=== PATIENT | female | born 1970 | race Caucasian/White ===

== ENCOUNTER 2016-09-21 12:50 | Emergency (ER) | payer OTHER ==
[2016-09-21 13:02] VITALS: BP 144/79; PULSE 93; RESP 16; TEMP 98.4
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
--- NOTE | 2016-09-21 14:34 | US ---
EXAMINATION TYPE: US venous doppler duplex LE RT DATE OF EXAM: 09/21/2016 2:24 PM COMPARISON: US on PACS right lower extremity March 01, 2016 CLINICAL HISTORY: Right leg pain and swelling. SIDE PERFORMED: Right VESSELS IMAGED: External Iliac Vein (EIV) Common Femoral Vein Deep Femoral Vein Greater Saphenous Vein * Femoral Vein Popliteal Vein Proximal Calf Veins (* superficial vessels) Right Leg: No evidence of DVT Satisfactory color flow, phasicity, and compressibility is noted in the above levels. TECHNOLOGIST IMPRESSION: No ultrasound evidence for acute DVT in the right lower extremity on curren t study. IMPRESSION:
== END 2016-09-21 15:16 | disposition home or self-care (01) ==
LOC: EC 12:50
DX: S76.811A Strain of other specified muscles, fascia and tendons at thigh level, right thigh, initial encounter (principal); X58.XXXA Exposure to other specified factors, initial encounter; E11.9 Type 2 diabetes mellitus without complications; I10 Essential (primary) hypertension; M79.7 Fibromyalgia; E07.9 Disorder of thyroid, unspecified; M19.90 Unspecified osteoarthritis, unspecified site; Z79.01 Long term (current) use of anticoagulants; Z79.84 Long term (current) use of oral hypoglycemic drugs; Z79.899 Other long term (current) drug therapy; Z88.5 Allergy status to narcotic agent; Z88.8 Allergy status to other drugs, medicaments and biological substances; Z86.718 Personal history of other venous thrombosis and embolism; Z86.711 Personal history of pulmonary embolism
CPT/HCPCS: 99283

== ENCOUNTER → 2017-02-01 | Outpatient (CLI) | payer OTHER ==
--- NOTE | 2017-02-01 11:28 | USB ---
Reason for exam: additional evaluation requested from abnormal screening. Indicated problem(s): palpable abnormality in both breasts. Physical Findings: Nurse did not find any significant physical abnormalities on exam. US Breast BILAT Right breast ultrasound includes all four quadrants, the retroareolar region and axilla. Finding demonstrate a 0.8 x 0.6 x 0.8mm oval, solid, hyperechoic, probable lipoma lesion at 3 o'clock. Left breast ultrasound includes all four quadrants, the retroareolar region and axilla. Finding demonstrates no cystic or solid lesion seen. These results were verbally communicated with the patient and result sheet given to the patient on 02/01/17. ASSESSMENT: Benign, BI-RAD 2 RECOMMENDATION: Routine screening mammogram of both breasts in 1 year.
== END | disposition home or self-care (01) ==
LOC: RADUSWWP 09:58
PROVIDERS: ATTEND Obstetrics & Gynecology
DX: N64.4 Mastodynia (principal); N63 Unspecified lump in breast; R92.8 Other abnormal and inconclusive findings on diagnostic imaging of breast

== ENCOUNTER → 2017-04-09 | Outpatient (CLI) | payer OTHER ==
--- NOTE | 2017-04-09 08:50 | US ---
EXAMINATION TYPE: US transvaginal DATE OF EXAM: 04/09/2017 COMPARISON: NONE CLINICAL HISTORY: N92.0 Menorrhagia. Irregular heavy cycles with clots TECHNIQUE: TV Date of LMP: 03/02/2017 EXAM MEASUREMENTS: Uterus: 11.5 x 6.0 x 5.9 cm Endometrial Stripe: 1.9 cm Right Ovary: 2.5 x 1.8 x 2.1 cm Left Ovary: not seen large body habitus 1. Uterus: Anteverted multiple nabothian cyst seen, unable to recreate possible fibroid seen previ ously 2. Endometrium: thickened 3. Right Ovary: 1.4cm follicle seen 4. Left Ovary: unable to view 5. Bilateral Adnexa: wnl 6. Posterior cul-de-sac: wnl IMPRESSION: 1. NABOTHIAN CYSTS. 2. THICKENED ENDOMETRIAL STRIPE.
== END | disposition home or self-care (01) ==
LOC: RADUSWWP 07:58
PROVIDERS: ATTEND Obstetrics & Gynecology
DX: N92.0 Excessive and frequent menstruation with regular cycle (principal)
CPT/HCPCS: 76830

== ENCOUNTER → 2017-05-21 | Outpatient (CLI) | payer OTHER ==
[2017-05-21 16:19] LABS: Basophils % (A) 1 %; CH 23.9; CHCM 31.4; Eosinophils # (A) 0.1 k/uL (0-0.7); Eosinophils % (A) 2 %; HCT 36.3 % (34.0-46.0); HDW 3.34; HGB 11.4 gm/dL (11.4-16.0); Hypochromasia Moderate; Luc # (Auto) 0.11; Luc % (Auto) 1; Lymphocytes # (A) 1.6 k/uL (1.0-4.8); Lymphocytes % (A) 20 %; MCH 24.1 pg (25.0-35.0); MCHC 31.5 g/dL (31.0-37.0); MCV 76.5 fL (80.0-100.0); Mean Platelet Volume 9.7; Microcytosis Slight; Monocytes # (A) 0.4 k/uL (0-1.0); Monocytes % (A) 5 %; Neutrophils # (A) 5.7 k/uL (1.3-7.7); Neutrophils % (A) 72 %; RBC 4.74 m/uL (3.80-5.40); RDW 15.4 % (11.5-15.5); WBC 7.9 k/uL (3.8-10.6); WBC (Perox) 8.09
== END | disposition home or self-care (01) ==
LOC: LABPAT 15:30
PROVIDERS: ATTEND Obstetrics & Gynecology
DX: Z01.812 Encounter for preprocedural laboratory examination (principal)
CPT/HCPCS: 85025

== ENCOUNTER 2017-05-28 06:45 | Day surgery (SDC) | payer OTHER ==
[2017-05-26 15:50] VITALS: BMI 56.5
[~2017-05-28 06:45] MED LIST: DEXAMETHASONE SOD PHOSPHATE 10 MG/ML 1 ML VIAL IV ONE; LACTATED RINGERS 1,000 ML IV SCH; MIDAZOLAM 2 MG/2 ML VIAL IV PRN; Pre Op ABX Message 1 EACH MISC MISCELLANE ONE; SCOPOLAMINE 1.5MG/72HR PATCH TRANSDERM ONE
[2017-05-28 07:19] LABS: Glucose,Whole Blood 284 mg/dL (75-99)
[2017-05-28] MEDS ORDERED: LIDOCAINE 1% 20 ML VIAL (10MG/ML) FOR IV START INTRADERMA ONE (07:23)
[2017-05-28] MEDS: ONDANSETRON 4 MG/2 ML VIAL IVP ONE ×2 (07:24→10:25)
[2017-05-28] MEDS ORDERED: HYDROmorphone (PF) 1 MG/ML ONE (07:52)
[2017-05-28] MEDS ORDERED: SUCCINYLCHOLINE CHLORIDE VIAL 200 MG/10 ML VIAL IV ONE (07:52)
[2017-05-28] MEDS ORDERED: PROPOFOL 10 MG/ML 20 ML VIAL IV ONE (07:52)
[2017-05-28] MEDS ORDERED: LIDOCAINE 1% INJ 10MG/ML (20 ML MDV) ONE (07:52)
[2017-05-28] MEDS ORDERED: MIDAZOLAM 2 MG/2 ML VIAL ONE (07:52)
[2017-05-28] MEDS ORDERED: fentaNYL (PF) 50 MCG/ML 2 ML AMP ONE (07:52)
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
--- NOTE | 2017-05-28 08:16 | P.OP ---
Date of Procedure: 05/28/17 Preoperative Diagnosis: Dysfunctional bleeding/menorrhagia Postoperative Diagnosis: Same Procedure(s) Performed: Dilation and curettage Anesthesia: VANITA Surgeon: Samuel Fitzpatrick Estimated Blood Loss (ml): 10 Pathology: other (Uterine curettings) Condition: stable Disposition: same day Operative Findings: Large quantity of tissue Description of Procedure: Angie was taken to the operating suite where a general anesthetic was found be adequate. She was prepped and draped in normal sterile fashion placed in dorsal lithotomy position. Initially a weighted speculum was inserted into the vagina and anterior lip was identified and grasped with an Allis clamp and the cervix was dilated. Sharp curettings of endometrium were obtained and all tissues placed on Telfa and sent to pathology for evaluation. Once this was completed instruments were removed sponge, lap, needle counts were all correct 2. Patient was then taken to the recovery room in stable and satisfactory condition. Plan - Discharge Summary New Discharge Prescriptions: No Action Cyclobenzaprine [Flexeril] 5 mg PO DAILY PRN PRN Reason: Pain Levothyroxine Sodium [Synthroid] 200 mcg PO AC-BRKFST Cholecalciferol [Vitamin D3] 5,000 unit PO DAILY Melatonin 10 mg PO HS PRN PRN Reason: Insomnia Nitroglycerin Sl Tabs [Nitrostat] 0.4 mg SUBLINGUAL Q5M PRN #25 tab PRN Reason: Chest Pain clonazePAM [KlonoPIN] 1 mg PO BID PRN PRN Reason: Anxiety Apixaban [Eliquis] 2.5 mg PO BID sitaGLIPtin [Januvia] 100 mg PO DAILY HYDROcodone/APAP 10-325MG [[place] 10-325] 1 tab PO TID PRN PRN Reason: Pain glyBURIDE [Diabeta] 10 mg PO BID Omeprazole [PriLOSEC] 20 mg PO BID Metoprolol Succinate (ER) [Toprol Xl] 25 mg PO DAILY Calcium Carbonate [Tums] 1,000 mg PO HS PRN PRN Reason: Heartburn Acetaminophen Tab [Tylenol Tab] 325 mg PO Q6H PRN PRN Reason: Pain Discharge Medication List Cyclobenzaprine [Flexeril] 5 mg PO DAILY PRN 06/30/14 [History] Levothyroxine Sodium [Synthroid] 200 mcg PO AC-BRKFST 10/19/14 [History] Cholecalciferol [Vitamin D3] 5,000 unit PO DAILY 07/13/14 [History] Melatonin 10 mg PO HS PRN 07/14/14 [History] Nitroglycerin Sl Tabs [Nitrostat] 0.4 mg SUBLINGUAL Q5M PRN #25 tab 08/27/14 [Rx ] clonazePAM [KlonoPIN] 1 mg PO BID PRN 10/15/14 [History] Apixaban [Eliquis] 2.5 mg PO BID 05/17/15 [History] sitaGLIPtin [Januvia] 100 mg PO DAILY 01/14/16 [History] Acetaminophen Tab [Tylenol Tab] 325 mg PO Q6H PRN 05/26/17 [History] Calcium Carbonate [Tums] 1,000 mg PO HS PRN 05/26/17 [History] HYDROcodone/APAP 10-325MG [[place] 10-325] 1 tab PO TID PRN 05/26/17 [History] Metoprolol Succinate (ER) [Toprol Xl] 25 mg PO DAILY 05/26/17 [History] Omeprazole [PriLOSEC] 20 mg PO BID 05/26/17 [History] glyBURIDE [Diabeta] 10 mg PO BID 05/26/17 [History] Follow up Appointment(s)/Referral(s): Samuel Fitzpatrick DO [Doctor of Osteopathic Medicine] - 1 Week Activity/Diet/Wound Care/Special Instructions: No heavy lifting, limit stairs and driving, and pelvic rest. If any high temperatures, heavy bleeding, or severe pain call my office Discharge Disposition: HOME SELF-CARE
[2017-05-28] MEDS: fentaNYL (PF) 50 MCG/ML 2 ML AMP IV PRN ×2 (08:33→08:38)
[2017-05-28 09:24] VITALS: RESP 18
[2017-05-28 09:30] LABS: Glucose,Whole Blood 340 mg/dL (75-99)
[2017-05-28 09:32] VITALS: TEMP 98.8
[2017-05-28] MEDS ORDERED: INSULIN REGULAR 100 UNIT/ML VIAL IV ONE (09:43)
[2017-05-28 10:17] LABS: Glucose,Whole Blood 347 mg/dL (75-99)
[2017-05-28] MEDS ORDERED: INSULIN LISPRO (humaLOG) 300 UNIT/3 ML VIAL SQ ONE (10:20)
[2017-05-28 10:58] VITALS: BP 125/84; PULSE 82
[2017-05-28 11:03] LABS: Glucose,Whole Blood 365 mg/dL (75-99)
== END 2017-05-28 11:58 | disposition home or self-care (01) ==
LOC: OR 06:45
PROVIDERS: ATTEND Obstetrics & Gynecology
DX: N93.8 Other specified abnormal uterine and vaginal bleeding (principal); N92.0 Excessive and frequent menstruation with regular cycle; R93.8 Abnormal findings on diagnostic imaging of other specified body structures; I10 Essential (primary) hypertension; E11.9 Type 2 diabetes mellitus without complications; M79.7 Fibromyalgia; E66.01 Morbid (severe) obesity due to excess calories; K21.9 Gastro-esophageal reflux disease without esophagitis; M19.90 Unspecified osteoarthritis, unspecified site; Z79.84 Long term (current) use of oral hypoglycemic drugs; Z79.899 Other long term (current) drug therapy; Z88.1 Allergy status to other antibiotic agents; Z88.5 Allergy status to narcotic agent; Z88.8 Allergy status to other drugs, medicaments and biological substances; Z79.02 Long term (current) use of antithrombotics/antiplatelets; Z86.718 Personal history of other venous thrombosis and embolism; Z86.711 Personal history of pulmonary embolism; Z62.810 Personal history of physical and sexual abuse in childhood
CPT/HCPCS: 81025; 88305; 58120; J2250; J0330; J1100; J2405; J2001; J3010; J1170; J2704

== ENCOUNTER → 2017-07-29 | Outpatient (CLI) | payer OTHER ==
--- NOTE | 2017-07-30 07:38 | MM ---
Reason for exam: additional evaluation requested from prior study. Last mammogram was performed 1 year ago. Physical Findings: Nurse did not find any significant physical abnormalities on exam. MG 3D Diag Mammo W/Cad SHERIF Bilateral CC and MLO view(s) were taken. Prior study comparison: August 05, 2016, bilateral MG 3d diag mammo w/cad SHERIF. July 04, 2015, bilateral MG 3d diag mammo w/cad SHERIF. There are scattered fibroglandular densities. No suspicious abnormality. No significant new findings when compared with previous films. These results were verbally communicated with the patient and result sheet given to the patient on 07/29/17. ASSESSMENT: Negative, BI-RAD 1 RECOMMENDATION: Routine screening mammogram of both breasts in 1 year.
--- NOTE | 2017-07-30 07:40 | USB ---
Reason for exam: additional evaluation requested from prior study. US Breast RT Right breast ultrasound includes all four quadrants, the retroareolar region and axilla. Finding demonstrates a 0.5 x 0.5 x 0.7cm benign lipoma at 11 o'clock and a 0.8 x 0.5 x 0.9cm benign lipoma at 3 o'clock, prior 0.8 x 0.6 x 0.8cm, overall unchanged given differences in technique. These results were verbally communicated with the patient and result sheet given to the patient on 07/29/17. ASSESSMENT: Benign, BI-RAD 2 RECOMMENDATION: Routine screening mammogram of both breasts in 1 year.
== END | disposition home or self-care (01) ==
LOC: RADMAMWWP 14:10
PROVIDERS: ATTEND Obstetrics & Gynecology
DX: N63.10 Unspecified lump in the right breast, unspecified quadrant (principal)
CPT/HCPCS: 76641; G0204; G0279

== ENCOUNTER → 2017-12-04 | Outpatient (CLI) | payer OTHER ==
[2017-12-04 07:54] LABS: ALT 36 U/L (9-52); AST 25 U/L (14-36); Albumin 3.8 g/dL (3.5-5.0); Alkaline Phosphatase 91 U/L (38-126); Anion Gap 15 mmol/L; Blood Urea Nitrogen 14 mg/dL (7-17); Calcium 9.2 mg/dL (8.4-10.2); Carbon Dioxide 25 mmol/L (22-30); Chloride 103 mmol/L (98-107); Glucose 188 mg/dL (74-99); Potassium 4.3 mmol/L (3.5-5.1); Sodium 143 mmol/L (137-145); Total Bilirubin 0.8 mg/dL (0.2-1.3); Total Protein 6.8 g/dL (6.3-8.2)
[2017-12-04 07:56] LABS: Anisocytosis Slight; Basophils % (A) 0 %; Eosinophils # (A) 0.1 k/uL (0-0.7); Eosinophils % (A) 2 %; HCT 39.6 % (34.0-46.0); HGB 11.4 gm/dL (11.4-16.0); Hypochromasia Marked; Lymphocytes # (A) 2.2 k/uL (1.0-4.8); Lymphocytes % (A) 29 %; MCH 20.6 pg (25.0-35.0); MCHC 28.7 g/dL (31.0-37.0); Mean Platelet Volume 8.5; Microcytosis Marked; Monocytes # (A) 0.4 k/uL (0-1.0); Monocytes % (A) 5 %; Neutrophils # (A) 4.8 k/uL (1.3-7.7); Neutrophils % (A) 62 %; Platelet Count 286 k/uL (150-450); RDW 18.8 % (11.5-15.5); WBC 7.7 k/uL (3.8-10.6)
[2017-12-04 08:09] LABS: T4, Free (Free Thyroxine) 1.73 ng/dL (0.78-2.19)
== END | disposition home or self-care (01) ==
LOC: LABWHC1 07:09
PROVIDERS: ATTEND Family Medicine
DX: I10 Essential (primary) hypertension (principal); E03.9 Hypothyroidism, unspecified; E55.9 Vitamin D deficiency, unspecified; E11.9 Type 2 diabetes mellitus without complications
CPT/HCPCS: 36415; 80053; 82306; 84439; 84443; 85025

== ENCOUNTER → 2018-02-03 | Outpatient (CLI) | payer OTHER ==
[2018-02-04 01:31] LABS: Hemoglobin A1C 8.1 % (4.0-6.0)
--- NOTE | 2018-02-04 08:13 | US ---
EXAMINATION TYPE: US Transvaginal DATE OF EXAM: 02/03/2018 COMPARISON: NONE CLINICAL HISTORY: N92.0 MENORRHAGIA; heavy menses and increased frequency; C Section x 1; TECHNIQUE: Transvaginal (TV). Transvaginal sonographic images were medically necessary as patient's bladder not full and patient elected to have TV US to better see endometrial thickness. US exam is te chnically limited by large body habitus. Date of LMP: 01/16/2018 EXAM MEASUREMENTS: Uterus: 10.5 x 6.2 x 5.5 cm Endometrial Stripe: 1.6 cm Right Ovary: not seen Left Ovary: 4.6 x 4.3 x 2.8 cm 1. Uterus: Anteverted; multiple, simple and complex Nabothian Cysts in cervix with largest =1.0 x 0 .8 x 0.9cm. 2. Endometrium: thick measure for day 19LMP (1.4cm is upper limits of normal thickness) 3. Right Ovary: not seen 4. Left Ovary: Cyst = 3.7 x 2.8 x 1.7cm and ovary is upper laterally located and borders limitedly seen. This is not well delineated and cannot be classified as simple cyst. Follow-up is recommended i n 6 weeks. 5. Bilateral Adnexa: wnl 6. Posterior cul-de-sac: wnl IMPRESSION: 1. Ill-defined cyst within the left ovary. This is not a simple cyst and follow-up is recommended. 2. Thickened endometrium
[2018-02-04 08:58] LABS: Anisocytosis Slight; HCT 41.4 % (34.0-46.0); HGB 12.5 gm/dL (11.4-16.0); Hypochromasia Marked; MCHC 30.3 g/dL (31.0-37.0); MCV 76.1 fL (80.0-100.0); Mean Platelet Volume 11.6; Microcytosis Slight; Platelet Count 265 k/uL (150-450); RBC 5.44 m/uL (3.80-5.40); RDW 16.5 % (11.5-15.5); WBC 13.6 k/uL (3.8-10.6)
== END | disposition home or self-care (01) ==
LOC: RADUSWWP 15:58
PROVIDERS: ATTEND Obstetrics & Gynecology
DX: N83.202 Unspecified ovarian cyst, left side (principal); R93.8 Abnormal findings on diagnostic imaging of other specified body structures; N92.0 Excessive and frequent menstruation with regular cycle
CPT/HCPCS: 76830; 82670; 82947; 83001; 83002; 83036; 84146; 84443; 85027

== ENCOUNTER → 2018-02-08 | Outpatient (CLI) | payer OTHER | END | disposition home or self-care (01) | LOC: LABWHC1 11:28 | PROVIDERS: ATTEND Obstetrics & Gynecology | DX: N93.8 Other specified abnormal uterine and vaginal bleeding (principal) | CPT/HCPCS: 36415; 82627; 84402; 84403 ==

== ENCOUNTER → 2018-03-17 | Outpatient (CLI) | payer OTHER ==
--- NOTE | 2018-03-17 18:37 | US ---
EXAMINATION TYPE: US transvaginal DATE OF EXAM: 03/17/2018 COMPARISON: US 2018 CLINICAL HISTORY: N83.20 Unspecified Ovarian Cysts. Heavy irregular cycles, clotting disorders, left ovarian cyst seen on previous ultrasound, history of , 3, para 2, miscarriage 1. TECHNIQUE: Transvaginal exam only per ordering physician. Date of LMP: 03/03/2018 EXAM MEASUREMENTS: Uterus: 10.4 x 5.2 x 6.0 cm Endometrial Stripe: 0.8 cm Right Ovary: not seen Left Ovary: 2.4 x 1.5 x 1.7 cm Difficult and limited study due to patient body habitus 1. Uterus: anteverted, heterogeneous, multiple nabothian cysts 2. Endometrium: appears thickened for patient's LMP 3. Right Ovary: not seen due to overlying bowel gas 4. Left Ovary: wnl 5. Bilateral Adnexa: wnl 6. Posterior cul-de-sac: wnl IMPRESSION: Cervical cysts are present. No endometrial thickening. No adnexal mass.
== END | disposition home or self-care (01) ==
LOC: RADUSWWP 16:36
PROVIDERS: ATTEND Obstetrics & Gynecology
DX: N88.8 Other specified noninflammatory disorders of cervix uteri (principal)
CPT/HCPCS: 76830

== ENCOUNTER 2018-04-28 04:48 | Observation (INO) | payer OTHER ==
[2018-04-28] MEDS ORDERED: SODIUM CHLORIDE 0.9% 1,000 ML IV STA (05:06)
[2018-04-28] MEDS ORDERED: METOPROLOL TARTRATE 25 MG TAB PO STA (05:09)
--- NOTE | 2018-04-28 05:17 | ED ---
Abdominal Pain HPI - General Source: patient Mode of arrival: ambulatory Limitations: no limitations <Henrietta Balderrama - Last Filed: 04/28/18 08:15> <Ariel Hall - Last Filed: 04/28/18 11:00> - General Chief Complaint: Abdominal Pain Stated Complaint: ABD PAIN Time Seen by Provider: 04/28/18 05:05 - History of Present Illness Initial Comments: 48-year-old morbidly obese female with a history of gastric sleeve who presents to the emergency department today for evaluation of right upper quadrant and right flank pain radiating to her pelvis. Patient reports that the pain began during the night, she took one Parker without any relief of the pain. Patient reports that the pain began in her right upper quadrant was similar to previous episodes of biliary colic, however she has not had anything like this since having her gallbladder removed. Patient reports that the pain then migrated to her right flank and radiated from her right flank into her pelvis. She has not urinated does not have any dysuria and hasn't noted any hematuria. Patient stones however felt that this was somewhat different. Pain is sharp, stabbing, radiating from the right flank to the lower right abdomen. Pain is associated with nausea. Patient does report chronic constipation but states she was able to have a very large bowel movement prior to coming to the ER with no change in her pain. Denies any recent illness, fevers, chills, nausea, vomiting or chest pain or shortness of breath. (Henrietta Balderrama) - Related Data Home Medications Medication Instructions Recorded Confirmed Cyclobenzaprine [Flexeril] 5 mg PO HS 06/30/14 04/28/18 Levothyroxine Sodium [Synthroid] 200 mcg PO AC-BRKFST 07/01/14 04/28/18 Cholecalciferol [Vitamin D3] 5,000 unit PO DAILY 07/13/14 04/28/18 clonazePAM [KlonoPIN] 1 mg PO BID PRN 10/15/14 04/28/18 Apixaban [Eliquis] 2.5 mg PO BID 05/17/15 04/28/18 HYDROcodone/APAP 10-325MG [Parker 1 tab PO TID PRN 05/26/17 04/28/18 10-325] Metoprolol Succinate (ER) [Toprol 25 mg PO DAILY 05/26/17 04/28/18 Xl] Omeprazole [PriLOSEC] 20 mg PO BID 05/26/17 04/28/18 Aspirin EC [Ecotrin Low Dose] 81 mg PO DAILY PRN 04/28/18 04/28/18 Canagliflozin/Metformin HCl 1 tab PO DAILY 04/28/18 04/28/18 [Invokamet 150-500 mg Tablet] glipiZIDE XL [Glucotrol Xl] 10 mg PO DAILY 04/28/18 04/28/18 Previous Rx's Medication Instructions Recorded Nitroglycerin Sl Tabs [Nitrostat] 0.4 mg SUBLINGUAL Q5M PRN #25 tab 08/27/14 Allergies Allergy/AdvReac Type Severity Reaction Status Date / Time bupropion [From Wellbutrin] Allergy Unknown AGITATED, Verified 04/28/18 10:27 TWITCHING OF EYES. duloxetine HCl Allergy Unknown Verified 04/28/18 10:27 [From Cymbalta] meperidine HCl [From Demerol] Allergy Chest Pain Verified 04/28/18 10:27 morphine Allergy Chest Pain Verified 04/28/18 10:27 rivaroxaban [From Xarelto] Allergy Rapid Verified 04/28/18 10:27 Heart Rate, blacks out, very ill NSAIDS (Non-Steroidal AdvReac Unknown STATES SHE Verified 04/28/18 10:27 Anti-Inflamma IS NOT SUPPOSED TO TAKE NSAIDS naproxen AdvReac Nausea & Verified 04/28/18 10:27 Vomiting sertraline [From Zoloft] AdvReac Rapid Verified 04/28/18 10:27 Heart Rate Review of Systems ROS Other: All systems not noted in ROS Statement are negative. <Henrietta Balderrama - Last Filed: 04/28/18 08:15> ROS Other: All systems not noted in ROS Statement are negative. <Ariel Hall - Last Filed: 04/28/18 11:00> ROS Statement: Those systems with pertinent positive or pertinent negative responses have been documented in the HPI. Past Medical History Past Medical History: Chest Pain / Angina, Diabetes Mellitus, Deep Vein Thrombosis (DVT), Fibromyalgia, GERD/Reflux, Hypertension, Osteoarthritis (OA), Pulmonary Embolus (PE), Syncope, Thyroid Disorder Additional Past Medical History / Comment(s): SEVERE HEADACHES WITH LIGHT SENSITIVITY, HX OF HTN (NO MEDS NOW), STATES OCCASIONAL HEART PALPITATIONS, HX OF DVT'S AND SADDLE PE, STATES DOUBLE MARKER FOR MTHFR GENE AND PROTHROMBIN GENE., LUPUS ENZYMES ELEVATED , DJD WITH BACK PAIN., HIATAL HERNIA. History of Any Multi-Drug Resistant Organisms: None Reported Past Surgical History: Appendectomy, Bariatric Surgery, Section, Cholecystectomy, Orthopedic Surgery Additional Past Surgical History / Comment(s): right bunionectomy ,. gastric sleeve in 2010. 2 D&C's Past Anesthesia/Blood Transfusion Reactions: Postoperative Nausea & Vomiting ( PONV) Additional Past Anesthesia/Blood Transfusion Reaction / Comment(s): SARABJIT BEFORE AND AFTER PROCEDURES. STATES PONV ONLY AFTER . Past Psychological History: ADD/ADHD, Anxiety, Depression, Panic Disorder, PTSD Smoking Status: Never smoker Past Alcohol Use History: None Reported Past Drug Use History: None Reported - Past Family History Brother(s) Additional Family Medical History / Comment(s): AUTISM Sister(s) Additional Family Medical History / Comment(s): BIPOLAR Son(s) Additional Family Medical History / Comment(s): LEARNING IMPAIRED; BIPOLAR, ADHD. ADHD Mother Family Medical History: Congestive Heart Failure (CHF), Diabetes Mellitus, Osteoarthritis (OA) Additional Family Medical History / Comment(s): anemia, mild heart attack, gout , LIVER DISEASE Father Family Medical History: Thyroid Disorder Additional Family Medical History / Comment(s): Bipolar <Henrietta Balderrama P - Last Filed: 04/28/18 08:15> General Exam Limitations: no limitations General appearance: alert, other (Really obese) Head exam: Present: atraumatic, normocephalic Eye exam: Present: PERRL ENT exam: Present: normal exam Neck exam: Present: normal inspection Respiratory exam: Absent: respiratory distress Cardiovascular Exam: Present: normal rhythm, tachycardia GI/Abdominal exam: Present: soft, tenderness, normal bowel sounds. Absent: distended, guarding, rebound, rigid, mass Rectal exam: Present: deferred Extremities exam: Present: normal capillary refill. Absent: pedal edema Neurological exam: Present: alert, oriented X3 Psychiatric exam: Present: normal affect, normal mood Skin exam: Present: warm, dry <Henrietta Balderrama P - Last Filed: 04/28/18 08:15> Vital Signs 04/28/18 04/28/18 04/28/18 04:51 06:31 09:01 Temperature 98.4 F Pulse Rate 102 H 96 112 H Respiratory 24 15 18 Rate Blood Pressure 134/85 158/66 125/73 O2 Sat by Pulse 98 95 95 Oximetry Medical Decision Making - Lab Data Result diagrams: 04/28/18 05:22 04/28/18 05:22 <Henrietta Balderrama - Last Filed: 04/28/18 08:15> - Lab Data Result diagrams: 04/28/18 05:22 04/28/18 05:22 - Radiology Data Radiology results: report reviewed (Computed tomography scan of the abdomen pelvis shows mild distention of small bowel with scattered air-fluid levels that may reflect enteritis.), image reviewed (Abdominal x-ray shows no acute process.) <Ariel Hall - Last Filed: 04/28/18 11:00> - Medical Decision Making The patient was seen and evaluated, history is obtained from the patient and her at bedside Labs and imaging were ordered KUB with no acute findings CBC and CMP were reviewed, mild leukocytosis, no acute kidney injury, no elevation of transaminases are bilirubin Patient with persistent pain and has not provided a urine sample at this time. Due to multiple ALLERGIES patient tolerates only divided and a single dose was ordered. She was encouraged to provide a urine sample, she requested a bedside commode. Persistent pain with a computed tomography scan was ordered. Dr. Hall will follow-up on computed tomography scan and disposition of the patient. (Henrietta Balderrama) Patient reevaluated twice. Abdomen is soft with mild epigastric tenderness. Patient still has some nausea. Patient updated on results and CT results. Case was discussed in detail with Dr. Díaz who does see this patient in the office. She has concern for partial small bowel obstruction and will admit to her service. She wanted to make sure patient received at least 2 L of normal saline. (Ariel Hall) - Lab Data Lab Results 04/28/18 04/28/18 04/28/18 Range/Units 05:22 05:22 08:10 WBC 15.3 H (3.8-10.6) k/uL RBC 5.48 H (3.80-5.40) m/uL Hgb 12.4 (11.4-16.0) gm/dL Hct 40.3 (34.0-46.0) % MCV 73.4 L (80.0-100.0) fL MCH 22.6 L (25.0-35.0) pg MCHC 30.8 L (31.0-37.0) g/dL RDW 16.1 H (11.5-15.5) % Plt Count 293 (150-450) k/uL Neutrophils % 82 % Lymphocytes % 11 % Monocytes % 6 % Eosinophils % 1 % Basophils % 0 % Neutrophils # 12.5 H (1.3-7.7) k/uL Lymphocytes # 1.7 (1.0-4.8) k/uL Monocytes # 0.9 (0-1.0) k/uL Eosinophils # 0.1 (0-0.7) k/uL Basophils # 0.1 (0-0.2) k/uL Hypochromasia Marked Anisocytosis Slight Microcytosis Slight Sodium 140 (137-145) mmol/L Potassium 4.4 (3.5-5.1) mmol/L Chloride 104 (98-107) mmol/L Carbon Dioxide 26 (22-30) mmol/L Anion Gap 10 mmol/L BUN 18 H (7-17) mg/dL Creatinine 0.82 (0.52-1.04) mg/dL Est GFR (CKD-EPI)AfAm >90 (>60 ml/min/1.73 sqM) Est GFR (CKD-EPI)NonAf 85 (>60 ml/min/1.73 sqM) Glucose 238 H (74-99) mg/dL Calcium 9.1 (8.4-10.2) mg/dL Total Bilirubin 0.7 (0.2-1.3) mg/dL AST 20 (14-36) U/L ALT 33 (9-52) U/L Alkaline Phosphatase 86 (38-126) U/L Total Protein 6.8 (6.3-8.2) g/dL Albumin 3.8 (3.5-5.0) g/dL Amylase 52 (30-110) U/L Lipase 75 (23-300) U/L Urine Color Urine Appearance (Clear) Urine pH (5.0-8.0) Ur Specific Delta (1.001-1.035) Urine Protein (Negative) Urine Glucose (UA) (Negative) Urine Ketones (Negative) Urine Blood (Negative) Urine Nitrite (Negative) Urine Bilirubin (Negative) Urine Urobilinogen (<2.0) mg/dL Ur Leukocyte Esterase (Negative) Urine HCG, Qual Not Detected (Not Detectd) 04/28/18 Range/Units 08:10 WBC (3.8-10.6) k/uL RBC (3.80-5.40) m/uL Hgb (11.4-16.0) gm/dL Hct (34.0-46.0) % MCV (80.0-100.0) fL MCH (25.0-35.0) pg MCHC (31.0-37.0) g/dL RDW (11.5-15.5) % Plt Count (150-450) k/uL Neutrophils % % Lymphocytes % % Monocytes % % Eosinophils % % Basophils % % Neutrophils # (1.3-7.7) k/uL Lymphocytes # (1.0-4.8) k/uL Monocytes # (0-1.0) k/uL Eosinophils # (0-0.7) k/uL Basophils # (0-0.2) k/uL Hypochromasia Anisocytosis Microcytosis Sodium (137-145) mmol/L Potassium (3.5-5.1) mmol/L Chloride (98-107) mmol/L Carbon Dioxide (22-30) mmol/L Anion Gap mmol/L BUN (7-17) mg/dL Creatinine (0.52-1.04) mg/dL Est GFR (CKD-EPI)AfAm (>60 ml/min/1.73 sqM) Est GFR (CKD-EPI)NonAf (>60 ml/min/1.73 sqM) Glucose (74-99) mg/dL Calcium (8.4-10.2) mg/dL Total Bilirubin (0.2-1.3) mg/dL AST (14-36) U/L ALT (9-52) U/L Alkaline Phosphatase (38-126) U/L Total Protein (6.3-8.2) g/dL Albumin (3.5-5.0) g/dL Amylase (30-110) U/L Lipase (23-300) U/L Urine Color Light Yellow Urine Appearance Clear (Clear) Urine pH 5.0 (5.0-8.0) Ur Specific Delta 1.037 H (1.001-1.035) Urine Protein Negative (Negative) Urine Glucose (UA) 4+ H (Negative) Urine Ketones 2+ H (Negative) Urine Blood Negative (Negative) Urine Nitrite Negative (Negative) Urine Bilirubin Negative (Negative) Urine Urobilinogen <2.0 (<2.0) mg/dL Ur Leukocyte Esterase Negative (Negative) Urine HCG, Qual (Not Detectd) Disposition <Henrietta Balderrama - Last Filed: 04/28/18 08:15> Is patient prescribed a controlled substance at d/c from ED?: No Decision Time: 11:00 <Ariel Hall - Last Filed: 04/28/18 11:00> Clinical Impression: Partial small bowel obstruction Disposition: ADMITTED IP TO THIS HOSP Referrals: Bashir Carlson MD [Primary Care Provider] - 1-2 days
[2018-04-28 05:58] LABS: Anisocytosis Slight; Basophils # (A) 0.1 k/uL (0-0.2); Basophils % (A) 0 %; Eosinophils # (A) 0.1 k/uL (0-0.7); Eosinophils % (A) 1 %; HCT 40.3 % (34.0-46.0); HGB 12.4 gm/dL (11.4-16.0); Hypochromasia Marked; Lymphocytes # (A) 1.7 k/uL (1.0-4.8); Lymphocytes % (A) 11 %; MCH 22.6 pg (25.0-35.0); MCHC 30.8 g/dL (31.0-37.0); MCV 73.4 fL (80.0-100.0); Microcytosis Slight; Monocytes # (A) 0.9 k/uL (0-1.0); Monocytes % (A) 6 %; Neutrophils # (A) 12.5 k/uL (1.3-7.7); Neutrophils % (A) 82 %; Platelet Count 293 k/uL (150-450); RBC 5.48 m/uL (3.80-5.40); RDW 16.1 % (11.5-15.5); WBC 15.3 k/uL (3.8-10.6)
[2018-04-28] MEDS: ONDANSETRON 4 MG/2 ML VIAL IVP STA ×2 (06:04→09:07)
[2018-04-28 06:06] LABS: ALT 33 U/L (9-52); AST 20 U/L (14-36); Albumin 3.8 g/dL (3.5-5.0); Alkaline Phosphatase 86 U/L (38-126); Amylase 52 U/L (30-110); Anion Gap 10 mmol/L; Blood Urea Nitrogen 18 mg/dL (7-17); Calcium 9.1 mg/dL (8.4-10.2); Carbon Dioxide 26 mmol/L (22-30); Chloride 104 mmol/L (98-107); Glucose 238 mg/dL (74-99); Lipase 75 U/L (23-300); Potassium 4.4 mmol/L (3.5-5.1); Sodium 140 mmol/L (137-145); Total Bilirubin 0.7 mg/dL (0.2-1.3); Total Protein 6.8 g/dL (6.3-8.2)
--- NOTE | 2018-04-28 06:09 | XR ---
EXAM: XR Abdomen, 1 View CLINICAL HISTORY: abdominal pain TECHNIQUE: Frontal supine view of the abdomen/pelvis. COMPARISON: 07-02-15 Disclaimer: Underpenetration due to patient's large body habitus decreases sensitivity of this exam. FINDINGS: Gastrointestinal tract: Nonspecific bowel gas pattern. No dilation. Moderate amount stool in the colon Organs: Cholecystectomy clips. Bones/joints: Unremarkable. IMPRESSION: No acute findings.
[2018-04-28] MEDS ORDERED: HYDROmorphone 1 MG/ML 1 ML SYRINGE IVP STA (07:45)
[2018-04-28 08:23] LABS: Appearance,Urine Clear (Clear); Bilirubin,Urine Negative (Negative); Blood,Urine Negative (Negative); Color,Urine Light Yellow; Glucose,Urine (UA) 4+ (Negative); Leukocyte Esterase,Urine Negative (Negative); Nitrite,Urine Negative (Negative); Protein,Urine Negative (Negative); Specific Gravity,Urine 1.037 (1.001-1.035); Urobilinogen,Urine <2.0 mg/dL (<2.0)
[2018-04-28 08:27] LABS: Ketones,Urine 2+ (Negative)
[2018-04-28] MEDS ORDERED: HYDROmorphone 0.5 MG/0.5 ML SYRINGE IVP STA (08:55)
[2018-04-28] MEDS ORDERED: SODIUM CHLORIDE 0.9% 500 ML IV ONE (09:08)
--- NOTE | 2018-04-28 09:30 | CT ---
EXAMINATION TYPE: CT abdomen pelvis w con DATE OF EXAM: 04/28/2018 COMPARISON: 08/30/2015 HISTORY: Right flank pain, nausea, vomiting. CT DLP: 2956.8 mGycm CONTRAST: CT scan of the abdomen and pelvis is performed without Oral Contrast and with IV Contrast, patient in jected with 100 mL of Isovue 300. FINDINGS: LUNG BASES-: No visible nodule. No infiltrate. LIVER/GB: Cholecystectomy clips identified. Mild hepatic steatosis identified. No space occupying hepatic lesion. Biliary tree is of normal caliber. PANCREAS: No inflammation. No distinct mass. SPLEEN: No splenic enlargement. No lesion seen. ADRENALS: No nodule. No thickening. KIDNEYS/BLADDER: No hydronephrosis. No nephrolithiasis. No distinct renal mass. Urinary bladder g rossly unremarkable. BOWEL: Small fixed hiatal hernia. Gastric sleeve formation noted. Mild distention of small bowel with scattered air-fluid levels may reflect enteritis. No evidence of pneumoperitoneum. The colon is unre markable. Previous appendectomy changes noted. GENITAL ORGANS: No gross abnormality. LYMPH NODES: No greater than 1cm abdominal or pelvic lymph nodes are appreciated. AORTA: No significant abnormality. OSSEOUS STRUCTURES: No significant abnormality is seen. OTHER: No significant additional abnormality is seen. IMPRESSION: 1. Mild distention of small bowel with scattered air-fluid levels may reflect enteritis.
[2018-04-28] MEDS ORDERED: METOCLOPRAMIDE 5 MG/ML 2 ML VIAL IVP STA (09:44)
[2018-04-28] MEDS ORDERED: SODIUM CHLORIDE 0.9% 500 ML IV STA (10:59)
[2018-04-28] MEDS ORDERED: NALOXONE 0.4 MG/ML 1 ML VIAL IV PRN (11:00)
[2018-04-28] MEDS ORDERED: ONDANSETRON 4 MG/2 ML VIAL IVP PRN (11:00)
[2018-04-28] MEDS: SODIUM CHLORIDE 0.9% 1,000 ML IV SCH ×2 (11:21→19:11)
[2018-04-28 12:40] LABS: Glucose,Whole Blood 297 mg/dL (75-99)
[2018-04-28 12:45] VITALS: RESP 16; TEMP 99
--- NOTE | 2018-04-28 13:58 | P.GSHP ---
<Augustina Spain - Last Filed: 04/28/18 14:00> History of Present Illness H&P Date: 04/28/18 Chief Complaint: Right flank pain 48-year-old female presented to the emergency room on the day of admission to be evaluated for a sudden onset of right upper quadrant abdominal pain radiating into the right flank area down the right side of the pelvis. stated the pain woke her up around 1 in the morning. stated that she got up took acid reflux took [id number] product with no relief patient states the pain became more symptomatic felt similar to prior episodes of "biliary colic however patient stated that since her gallbladder was removed had not had any this type of pain. Patient came into the emergency room with the above- mentioned symptoms. Patient states that she does have constipation issues. But did have a very large bowel movement before coming into the emergency room. Had no relief from pain in the abdomen after the bowel movement patient was seen in the emergency room a computed tomography scan of the abdomen pelvis the report was reviewed indicating mild distention of the small bowel with scattered air-fluid level may reflect enteritis. Kidneys showed no hydronephrosis no nephrolithiasis no renal mass currently patient states abdominal pain significantly improved. Past surgical history sleeve gastric bypass 2010, right bunionectomy, cholecystectomy Past medical history clotting disorder positive gene MTHFR, history of saddle pulmonary emboli, depressive panic disorder , - Review of Systems Comment: Essentially unremarkable except as mentioned in the present Past Medical History Past Medical History: Chest Pain / Angina, Diabetes Mellitus, Deep Vein Thrombosis (DVT), Fibromyalgia, GERD/Reflux, Hypertension, Osteoarthritis (OA), Pulmonary Embolus (PE), Skin Disorder, Syncope, Thyroid Disorder Additional Past Medical History / Comment(s): NIDDM type II, neuropathy bilateral lower legs/feet, SEVERE HEADACHES WITH LIGHT SENSITIVITY, OCCASIONAL HEART PALPITATIONS, HX OF DVT IN R LEG AND SADDLE PE, STATES DOUBLE MARKER FOR MTHFR GENE AND PROTHROMBIN GENE 15209F., LUPUS ENZYMES ELEVATED , ARTHRITIS MULTIPLE JOINTS, CHRONIC BACK PAIN., HIATAL HERNIA, R BREAST LARGER/NIPPLE LEAKAGE-BEING MONITORED, EDOMETRIAL THICKENING BEING MONITORED, NEPHROLITHIASIS- PASSED STONE ON HER OWN, HYPOTHYROID, BILATERAL VARICOSITIES, ROSACEA. History of Any Multi-Drug Resistant Organisms: None Reported Past Surgical History: Appendectomy, Bariatric Surgery, Section, Cholecystectomy, Orthopedic Surgery Additional Past Surgical History / Comment(s): 2010 gastric sleeve, EGD/ colonoscopies, D&Cs, R foot bunionectomy, TTT Past Anesthesia/Blood Transfusion Reactions: Postoperative Nausea & Vomiting ( PONV) Additional Past Anesthesia/Blood Transfusion Reaction / Comment(s): CRIES BEFORE AND AFTER PROCEDURES. STATES PONV ONLY AFTER . Smoking Status: Never smoker - Past Family History Brother(s) Additional Family Medical History / Comment(s): AUTISM Sister(s) Additional Family Medical History / Comment(s): BIPOLAR Son(s) Additional Family Medical History / Comment(s): LEARNING IMPAIRED; BIPOLAR, ADHD. ADHD Mother Family Medical History: Congestive Heart Failure (CHF), Diabetes Mellitus, Osteoarthritis (OA) Additional Family Medical History / Comment(s): anemia, mild heart attack, gout , LIVER DISEASE Father Family Medical History: Thyroid Disorder Additional Family Medical History / Comment(s): Bipolar Medications and Allergies Home Medications Medication Instructions Recorded Confirmed Type Cyclobenzaprine [Flexeril] 5 mg PO HS 06/30/14 04/28/18 History Levothyroxine Sodium [Synthroid] 200 mcg PO AC-BRKFST 07/01/14 04/28/18 History Cholecalciferol [Vitamin D3] 5,000 unit PO DAILY 07/13/14 04/28/18 History Nitroglycerin Sl Tabs [Nitrostat] 0.4 mg SUBLINGUAL Q5M PRN #25 tab 08/27/14 Rx clonazePAM [KlonoPIN] 1 mg PO BID PRN 10/15/14 04/28/18 History Apixaban [Eliquis] 2.5 mg PO BID 05/17/15 04/28/18 History HYDROcodone/APAP 10-325MG [[place] 1 tab PO TID PRN 05/26/17 04/28/18 History 10-325] Metoprolol Succinate (ER) [Toprol 25 mg PO DAILY 05/26/17 04/28/18 History Xl] Omeprazole [PriLOSEC] 20 mg PO BID 05/26/17 04/28/18 History Aspirin EC [Ecotrin Low Dose] 81 mg PO DAILY PRN 04/28/18 04/28/18 History Canagliflozin/Metformin HCl 1 tab PO DAILY 04/28/18 04/28/18 History [Invokamet 150-500 mg Tablet] glipiZIDE XL [Glucotrol Xl] 10 mg PO DAILY 04/28/18 04/28/18 History Allergies Allergy/AdvReac Type Severity Reaction Status Date / Time bupropion [From Wellbutrin] Allergy Unknown AGITATED, Verified 04/28/18 10:27 TWITCHING OF EYES. duloxetine HCl Allergy Unknown Verified 04/28/18 10:27 [From Cymbalta] meperidine HCl [From Demerol] Allergy Chest Pain Verified 04/28/18 10:27 morphine Allergy Chest Pain Verified 04/28/18 10:27 rivaroxaban [From Xarelto] Allergy Rapid Verified 04/28/18 10:27 Heart Rate, blacks out, very ill NSAIDS (Non-Steroidal AdvReac Unknown STATES SHE Verified 04/28/18 10:27 Anti-Inflamma IS NOT SUPPOSED TO TAKE NSAIDS naproxen AdvReac Nausea & Verified 04/28/18 10:27 Vomiting sertraline [From Zoloft] AdvReac Rapid Verified 04/28/18 10:27 Heart Rate Surgical - Exam Vital Signs Temp Pulse Resp BP Pulse Ox 98.4 F 102 H 24 134/85 98 04/28/18 04:51 04/28/18 04:51 04/28/18 04:51 04/28/18 04:51 04/28/18 04:51 GENERAL APPEARANCE: 48-year-old female patient is alert, oriented, in no acute distress. VITAL SIGNS: Reviewed HEENT: Head is normocephalic and atraumatic. Pupils are equal and reactive. The nares are patent. Oropharynx is clear without lesions. NECK: Supple without lymphadenopathy. Traches midline. HEART: S1, S2. Regular rate and rhythm. No murmur noted LUNGS: No crackles or wheezes are heard. Adequate air movement no shortness of breath ABDOMEN: Soft, obese mild tenderness right flank nondistended with good bowel sounds. No peritoneal signs. No palpable organomegaly or masses. EXTREMITIES: No cyanosis, rash, ulceration, clubbing or edema. Radial pedal pulses are 2/4 bilaterally. NEUROLOGICAL: No focal deficits. Strength and sensation are grossly intact. Skin rosacea noted to the face Results - Labs 04/28/18 05:22 04/28/18 05:22 Abnormal Lab Results - Last 24 Hours (Table) 04/28/18 04/28/18 04/28/18 Range/Units 05:22 05:22 08:10 WBC 15.3 H (3.8-10.6) k/uL RBC 5.48 H (3.80-5.40) m/uL MCV 73.4 L (80.0-100.0) fL MCH 22.6 L (25.0-35.0) pg MCHC 30.8 L (31.0-37.0) g/dL RDW 16.1 H (11.5-15.5) % Neutrophils # 12.5 H (1.3-7.7) k/uL BUN 18 H (7-17) mg/dL Glucose 238 H (74-99) mg/dL POC Glucose (mg/dL) (75-99) mg/dL Ur Specific [place] 1.037 H (1.001-1.035) Urine Glucose (UA) 4+ H (Negative) Urine Ketones 2+ H (Negative) 04/28/18 Range/Units 12:35 WBC (3.8-10.6) k/uL RBC (3.80-5.40) m/uL MCV (80.0-100.0) fL MCH (25.0-35.0) pg MCHC (31.0-37.0) g/dL RDW (11.5-15.5) % Neutrophils # (1.3-7.7) k/uL BUN (7-17) mg/dL Glucose (74-99) mg/dL POC Glucose (mg/dL) 297 H (75-99) mg/dL Ur Specific [place] (1.001-1.035) Urine Glucose (UA) (Negative) Urine Ketones (Negative) Diabetes panel 04/28/18 Range/Units 05:22 Sodium 140 (137-145) mmol/L Potassium 4.4 (3.5-5.1) mmol/L Chloride 104 (98-107) mmol/L Carbon Dioxide 26 (22-30) mmol/L BUN 18 H (7-17) mg/dL Creatinine 0.82 (0.52-1.04) mg/dL Glucose 238 H (74-99) mg/dL Calcium 9.1 (8.4-10.2) mg/dL AST 20 (14-36) U/L ALT 33 (9-52) U/L Alkaline Phosphatase 86 (38-126) U/L Total Protein 6.8 (6.3-8.2) g/dL Albumin 3.8 (3.5-5.0) g/dL Calcium panel 04/28/18 Range/Units 05:22 Calcium 9.1 (8.4-10.2) mg/dL Albumin 3.8 (3.5-5.0) g/dL Pituitary panel 04/28/18 Range/Units 05:22 Sodium 140 (137-145) mmol/L Potassium 4.4 (3.5-5.1) mmol/L Chloride 104 (98-107) mmol/L Carbon Dioxide 26 (22-30) mmol/L BUN 18 H (7-17) mg/dL Creatinine 0.82 (0.52-1.04) mg/dL Glucose 238 H (74-99) mg/dL Calcium 9.1 (8.4-10.2) mg/dL Adrenal panel 04/28/18 Range/Units 05:22 Sodium 140 (137-145) mmol/L Potassium 4.4 (3.5-5.1) mmol/L Chloride 104 (98-107) mmol/L Carbon Dioxide 26 (22-30) mmol/L BUN 18 H (7-17) mg/dL Creatinine 0.82 (0.52-1.04) mg/dL Glucose 238 H (74-99) mg/dL Calcium 9.1 (8.4-10.2) mg/dL Total Bilirubin 0.7 (0.2-1.3) mg/dL AST 20 (14-36) U/L ALT 33 (9-52) U/L Alkaline Phosphatase 86 (38-126) U/L Total Protein 6.8 (6.3-8.2) g/dL Albumin 3.8 (3.5-5.0) g/dL Assessment and Plan Assessment: Impression Present on admission acute onset right flank pain suspect due to enteritis Computed tomography scan abdomen pelvis images reflect likely enteritis Morbid obesity BMI 52 Positive gene for MTH FR EGD May 2016 for esophageal reflux disease epigastric abdominal pain EGD May 2016 chronic superficial gastritis diaphragmatic hiatal hernia without obstruction Prior cholecystectomy Plan No evidence of an acute surgical abdomen at this time Resume home meds as appropriate Diet as tolerated Pain medication DVT GI prophylaxis Further surgical recommendations after eval by Dr. Tubbs The above impression and plan of care have been discussed and directed by signing physician. Augustina Spain nurse practitioner acting as scribe for signing physician. <Lorie Tubbs N - Last Filed: 04/28/18 19:53> Surgical - Exam Vital Signs Temp Pulse Resp BP Pulse Ox 98.4 F 102 H 24 134/85 98 04/28/18 04:51 04/28/18 04:51 04/28/18 04:51 04/28/18 04:51 04/28/18 04:51 Results - Labs 04/28/18 05:22 04/28/18 05:22 Abnormal Lab Results - Last 24 Hours (Table) 04/28/18 04/28/18 04/28/18 Range/Units 05:22 05:22 08:10 WBC 15.3 H (3.8-10.6) k/uL RBC 5.48 H (3.80-5.40) m/uL MCV 73.4 L (80.0-100.0) fL MCH 22.6 L (25.0-35.0) pg MCHC 30.8 L (31.0-37.0) g/dL RDW 16.1 H (11.5-15.5) % Neutrophils # 12.5 H (1.3-7.7) k/uL BUN 18 H (7-17) mg/dL Glucose 238 H (74-99) mg/dL POC Glucose (mg/dL) (75-99) mg/dL Ur Specific [place] 1.037 H (1.001-1.035) Urine Glucose (UA) 4+ H (Negative) Urine Ketones 2+ H (Negative) 04/28/18 04/28/18 Range/Units 12:35 17:32 WBC (3.8-10.6) k/uL RBC (3.80-5.40) m/uL MCV (80.0-100.0) fL MCH (25.0-35.0) pg MCHC (31.0-37.0) g/dL RDW (11.5-15.5) % Neutrophils # (1.3-7.7) k/uL BUN (7-17) mg/dL Glucose (74-99) mg/dL POC Glucose (mg/dL) 297 H 197 H (75-99) mg/dL Ur Specific [place] (1.001-1.035) Urine Glucose (UA) (Negative) Urine Ketones (Negative) Diabetes panel 04/28/18 Range/Units 05:22 Sodium 140 (137-145) mmol/L Potassium 4.4 (3.5-5.1) mmol/L Chloride 104 (98-107) mmol/L Carbon Dioxide 26 (22-30) mmol/L BUN 18 H (7-17) mg/dL Creatinine 0.82 (0.52-1.04) mg/dL Glucose 238 H (74-99) mg/dL Calcium 9.1 (8.4-10.2) mg/dL AST 20 (14-36) U/L ALT 33 (9-52) U/L Alkaline Phosphatase 86 (38-126) U/L Total Protein 6.8 (6.3-8.2) g/dL Albumin 3.8 (3.5-5.0) g/dL Calcium panel 04/28/18 Range/Units 05:22 Calcium 9.1 (8.4-10.2) mg/dL Albumin 3.8 (3.5-5.0) g/dL Pituitary panel 04/28/18 Range/Units 05:22 Sodium 140 (137-145) mmol/L Potassium 4.4 (3.5-5.1) mmol/L Chloride 104 (98-107) mmol/L Carbon Dioxide 26 (22-30) mmol/L BUN 18 H (7-17) mg/dL Creatinine 0.82 (0.52-1.04) mg/dL Glucose 238 H (74-99) mg/dL Calcium 9.1 (8.4-10.2) mg/dL Adrenal panel 04/28/18 Range/Units 05:22 Sodium 140 (137-145) mmol/L Potassium 4.4 (3.5-5.1) mmol/L Chloride 104 (98-107) mmol/L Carbon Dioxide 26 (22-30) mmol/L BUN 18 H (7-17) mg/dL Creatinine 0.82 (0.52-1.04) mg/dL Glucose 238 H (74-99) mg/dL Calcium 9.1 (8.4-10.2) mg/dL Total Bilirubin 0.7 (0.2-1.3) mg/dL AST 20 (14-36) U/L ALT 33 (9-52) U/L Alkaline Phosphatase 86 (38-126) U/L Total Protein 6.8 (6.3-8.2) g/dL Albumin 3.8 (3.5-5.0) g/dL
[2018-04-28] MEDS ORDERED: glipiZIDE 5 MG TAB PO SCH (17:30)
[2018-04-28 17:36] LABS: Glucose,Whole Blood 197 mg/dL (75-99)
[2018-04-28] MEDS ORDERED: CANAGLIFLOZIN PO SCH (18:00)
[2018-04-28] MEDS ORDERED: METFORMIN HCL PO SCH (18:00)
[2018-04-28 19:03] VITALS: BP 122/75; PULSE 120
--- NOTE | 2018-04-28 19:58 | P.DS ---
Providers Date of admission: 04/28/18 11:01 Expected date of discharge: 04/28/18 Attending physician: Lorie Tubbs Primary care physician: Bashir Carlson - Discharge Diagnosis(es) (1) Small bowel obstruction Status: Acute (2) History of sleeve gastrectomy Status: Acute (3) Morbid obesity with BMI of 50.0-59.9, adult Status: Acute (4) Hypercoagulable state Status: Acute (5) Gastroesophageal reflux Status: Acute (6) Kidney stones Status: Acute (7) Flank pain Status: Acute (8) Fibromyalgia Status: Acute (9) MTHFR mutation Status: Acute Hospital Course: The patient is a 48-year-old female who came in with history of acute on chronic diffuse abdominal pain for over 24 hours. Initially she had persistent right flank pain which she states is ongoing for almost one month. She has personal history of kidney stones which had recently passed the last several weeks. She reports having blood in her urine after potentially passing a stone. She just completed her menstrual cycle. She is passing flatus. She presented to the ER secondary to severe abdominal pain and possible bowel obstruction. Since admission, she has been given IV fluid bolus for dehydration. She reported having a bowel movement. Abdominal pain had improved. She had reflex tachycardia secondary to missed dose of her beta alyssa. Prior to discharge, she was tolerating diet. Patient chose to follow up as outpatient. Patient was deemed stable for discharge. Pertinent Studies: CT of the abdomen and pelvis without free air. Patient Condition at Discharge: Stable Plan - Discharge Summary Discharge Rx Participant: No New Discharge Prescriptions: Continue Cyclobenzaprine [Flexeril] 5 mg PO HS Levothyroxine Sodium [Synthroid] 200 mcg PO AC-BRKFST Cholecalciferol [Vitamin D3] 5,000 unit PO DAILY Nitroglycerin Sl Tabs [Nitrostat] 0.4 mg SUBLINGUAL Q5M PRN #25 tab PRN Reason: Chest Pain clonazePAM [KlonoPIN] 1 mg PO BID PRN PRN Reason: Anxiety Apixaban [Eliquis] 2.5 mg PO BID HYDROcodone/APAP 10-325MG [[place] 10-325] 1 tab PO TID PRN PRN Reason: Pain Omeprazole [PriLOSEC] 20 mg PO BID Metoprolol Succinate (ER) [Toprol XL] 25 mg PO DAILY glipiZIDE XL [Glucotrol XL] 10 mg PO DAILY Canagliflozin/Metformin HCl [Invokamet 150-500 mg Tablet] 1 tab PO DAILY Aspirin EC [Ecotrin Low Dose] 81 mg PO DAILY PRN PRN Reason: Pain Discharge Medication List Cyclobenzaprine [Flexeril] 5 mg PO HS 06/30/14 [History] Levothyroxine Sodium [Synthroid] 200 mcg PO AC-BRKFST 07/01/14 [History] Cholecalciferol [Vitamin D3] 5,000 unit PO DAILY 07/13/14 [History] Nitroglycerin Sl Tabs [Nitrostat] 0.4 mg SUBLINGUAL Q5M PRN #25 tab 08/27/14 [Rx ] clonazePAM [KlonoPIN] 1 mg PO BID PRN 10/15/14 [History] Apixaban [Eliquis] 2.5 mg PO BID 05/17/15 [History] HYDROcodone/APAP 10-325MG [[place] 10-325] 1 tab PO TID PRN 05/26/17 [History] Metoprolol Succinate (ER) [Toprol XL] 25 mg PO DAILY 05/26/17 [History] Omeprazole [PriLOSEC] 20 mg PO BID 05/26/17 [History] Aspirin EC [Ecotrin Low Dose] 81 mg PO DAILY PRN 04/28/18 [History] Canagliflozin/Metformin HCl [Invokamet 150-500 mg Tablet] 1 tab PO DAILY [History] glipiZIDE XL [Glucotrol XL] 10 mg PO DAILY 04/28/18 [History] Follow up Appointment(s)/Referral(s): Lorie Tubbs MD [STAFF PHYSICIAN] - 1 Week (office closed, client will call) Bashir Carlson MD [Primary Care Provider] - 1 Week (office closed, client will call) Patient Instructions/Handouts: Bowel Obstruction (DC) Activity/Diet/Wound Care/Special Instructions: Cardiac, diabetic diet. Activity as tolerated. Discharge Disposition: HOME SELF-CARE
[2018-04-29] MEDS ORDERED: PANTOPRAZOLE 40 MG/10 ML VIAL IV SCH (09:00)
== END 2018-04-28 19:11 | disposition home or self-care (01) ==
LOC: EC 04:48 → 4MS4W 11:01
PROVIDERS: ADMIT Surgery Plastic and Reconstructive Surgery; ATTEND Surgery Plastic and Reconstructive Surgery
DX: K56.699 Other intestinal obstruction unspecified as to partial versus complete obstruction (principal); E86.0 Dehydration; I10 Essential (primary) hypertension; E11.9 Type 2 diabetes mellitus without complications; R00.0 Tachycardia, unspecified; T44.7X6A Underdosing of beta-adrenoreceptor antagonists, initial encounter; Z91.138 Patient's unintentional underdosing of medication regimen for other reason; D68.59 Other primary thrombophilia; M19.90 Unspecified osteoarthritis, unspecified site; K59.00 Constipation, unspecified; M32.9 Systemic lupus erythematosus, unspecified; K44.9 Diaphragmatic hernia without obstruction or gangrene; K21.9 Gastro-esophageal reflux disease without esophagitis; E72.12 Methylenetetrahydrofolate reductase deficiency; M79.7 Fibromyalgia; E03.9 Hypothyroidism, unspecified; I83.93 Asymptomatic varicose veins of bilateral lower extremities; F41.0 Panic disorder [episodic paroxysmal anxiety]; F32.9 Major depressive disorder, single episode, unspecified; E66.01 Morbid (severe) obesity due to excess calories; Z68.43 Body mass index [BMI] 50.0-59.9, adult; F41.9 Anxiety disorder, unspecified; F43.10 Post-traumatic stress disorder, unspecified; F90.9 Attention-deficit hyperactivity disorder, unspecified type; Z79.01 Long term (current) use of anticoagulants; Z79.84 Long term (current) use of oral hypoglycemic drugs; Z79.82 Long term (current) use of aspirin; Z79.890 Hormone replacement therapy; Z79.899 Other long term (current) drug therapy; Z88.6 Allergy status to analgesic agent; Z88.5 Allergy status to narcotic agent; Z88.8 Allergy status to other drugs, medicaments and biological substances; Z98.84 Bariatric surgery status; Z90.49 Acquired absence of other specified parts of digestive tract; Z90.89 Acquired absence of other organs; Z86.711 Personal history of pulmonary embolism; Z87.19 Personal history of other diseases of the digestive system; Z87.442 Personal history of urinary calculi; Z86.718 Personal history of other venous thrombosis and embolism; Z81.8 Family history of other mental and behavioral disorders; Z83.3 Family history of diabetes mellitus; Z82.49 Family history of ischemic heart disease and other diseases of the circulatory system; Z83.79 Family history of other diseases of the digestive system; Z83.49 Family history of other endocrine, nutritional and metabolic diseases; Z82.61 Family history of arthritis; Z83.2 Family history of diseases of the blood and blood-forming organs and certain disorders involving the immune mechanism
CPT/HCPCS: 96375 ×3; 96361 ×7; 96376 ×3; 96374 ×2; 99285 ×2; 36415; 80053; 82150; 83690; 85025; 81003; 81025; 74018; 74177; G0378; J2765; J2405; J1170; Q9967

== ENCOUNTER → 2018-08-10 | Outpatient (CLI) | payer OTHER ==
--- NOTE | 2018-08-10 08:35 | MM ---
Reason for exam: additional evaluation requested from prior study. Last mammogram was performed 1 year ago. Physical Findings: Nurse did not find any significant physical abnormalities on exam. MG 3D Diag Mammo W/Cad SHERIF Bilateral CC and MLO view(s) were taken. Prior study comparison: July 29, 2017, bilateral MG 3d diag mammo w/cad SHERIF. August 05, 2016, bilateral MG 3d diag mammo w/cad SHERIF. There are scattered fibroglandular densities. There is no discrete abnormality. No significant new findings when compared with previous films. These results were verbally communicated with the patient and result sheet given to the patient on 08/10/18. ASSESSMENT: Negative, BI-RAD 1 RECOMMENDATION: Routine screening mammogram of both breasts in 1 year.
== END | disposition home or self-care (01) ==
LOC: RADMAMWWP 07:20
PROVIDERS: ATTEND Obstetrics & Gynecology
DX: R92.8 Other abnormal and inconclusive findings on diagnostic imaging of breast (principal)
CPT/HCPCS: 77062; 77066

== ENCOUNTER 2018-08-13 21:33 | Emergency (ER) | payer OTHER ==
[2018-08-13 21:55] VITALS: BP 157/85; RESP 16
[2018-08-13] MEDS ORDERED: SULFAMETHOX-TMP 800-160MG 1 EACH TAB PO STA (23:02)
--- NOTE | 2018-08-13 23:57 | ED ---
General Adult HPI - General Source: patient, family, RN notes reviewed Mode of arrival: wheelchair Limitations: no limitations <Kevon Worthington - Last Filed: 08/13/18 23:47> <Paul Mejias - Last Filed: 08/15/18 23:34> - General Chief complaint: Extremity Problem,Nontraumatic Stated complaint: rt thumb tenderness Time Seen by Provider: 08/13/18 21:56 - History of Present Illness Initial comments: 48-year-old female presents to the emergency department for a chief complaint of right thumb pain x one week. Patient states she had Keflex prescribed 5 days ago. She states that pain initially felt better and then today worsened again. Patient also noticed some streaking redness up her thumb and became concerned. She denies fevers or chills at home. She denies any injuries to the right thumb. Patient has no other complaints at this time including shortness of breath, chest pain, abdominal pain, nausea or vomiting, headache, or visual changes. (Keovn Worthington) - Related Data Home Medications Medication Instructions Recorded Confirmed Cyclobenzaprine [Flexeril] 5 mg PO HS 06/30/14 04/28/18 Levothyroxine Sodium [Synthroid] 200 mcg PO AC-BRKFST 07/01/14 04/28/18 Cholecalciferol [Vitamin D3] 5,000 unit PO DAILY 07/13/14 04/28/18 clonazePAM [KlonoPIN] 1 mg PO BID PRN 10/15/14 04/28/18 Apixaban [Eliquis] 2.5 mg PO BID 05/17/15 04/28/18 HYDROcodone/APAP 10-325MG [[place] 1 tab PO TID PRN 05/26/17 04/28/18 10-325] Metoprolol Succinate (ER) [Toprol 25 mg PO DAILY 05/26/17 04/28/18 XL] Omeprazole [PriLOSEC] 20 mg PO BID 05/26/17 04/28/18 Aspirin EC [Ecotrin Low Dose] 81 mg PO DAILY PRN 04/28/18 04/28/18 Canagliflozin/Metformin HCl 1 tab PO DAILY 04/28/18 04/28/18 [Invokamet 150-500 mg Tablet] glipiZIDE XL [Glucotrol XL] 10 mg PO DAILY 04/28/18 04/28/18 Previous Rx's Medication Instructions Recorded Nitroglycerin Sl Tabs [Nitrostat] 0.4 mg SUBLINGUAL Q5M PRN #25 tab 08/27/14 Sulfamethox-Tmp 800-160Mg [Bactrim 1 tab PO Q12HR 10 Days tab 08/14/18 DS 800-160 mg] Allergies Allergy/AdvReac Type Severity Reaction Status Date / Time bupropion [From Wellbutrin] Allergy Unknown AGITATED, Verified 08/13/18 21:55 TWITCHING OF EYES. duloxetine HCl Allergy Unknown Verified 08/13/18 21:55 [From Cymbalta] meperidine HCl [From Demerol] Allergy Chest Pain Verified 08/13/18 21:55 morphine Allergy Chest Pain Verified 08/13/18 21:55 rivaroxaban [From Xarelto] Allergy Rapid Verified 08/13/18 21:55 Heart Rate, blacks out, very ill NSAIDS (Non-Steroidal AdvReac Unknown STATES SHE Verified 08/13/18 21:55 Anti-Inflamma IS NOT SUPPOSED TO TAKE NSAIDS naproxen AdvReac Nausea & Verified 08/13/18 21:55 Vomiting sertraline [From Zoloft] AdvReac Rapid Verified 08/13/18 21:55 Heart Rate Review of Systems ROS Other: All systems not noted in ROS Statement are negative. <Kevon Worthington - Last Filed: 08/13/18 23:47> ROS Other: All systems not noted in ROS Statement are negative. <Paul Mejias - Last Filed: 08/15/18 23:34> ROS Statement: Those systems with pertinent positive or pertinent negative responses have been documented in the HPI. Past Medical History Past Medical History: Chest Pain / Angina, Diabetes Mellitus, Deep Vein Thrombosis (DVT), Fibromyalgia, GERD/Reflux, Hypertension, Osteoarthritis (OA), Pulmonary Embolus (PE), Skin Disorder, Syncope, Thyroid Disorder Additional Past Medical History / Comment(s): NIDDM type II, neuropathy bilateral lower legs/feet, SEVERE HEADACHES WITH LIGHT SENSITIVITY, OCCASIONAL HEART PALPITATIONS, HX OF DVT IN R LEG AND SADDLE PE, STATES DOUBLE MARKER FOR MTHFR GENE AND PROTHROMBIN GENE 34768C., LUPUS ENZYMES ELEVATED , ARTHRITIS MULTIPLE JOINTS, CHRONIC BACK PAIN., HIATAL HERNIA, R BREAST LARGER/NIPPLE LEAKAGE-BEING MONITORED, EDOMETRIAL THICKENING BEING MONITORED, NEPHROLITHIASIS- PASSED STONE ON HER OWN, HYPOTHYROID, BILATERAL VARICOSITIES, ROSACEA. History of Any Multi-Drug Resistant Organisms: None Reported Past Surgical History: Appendectomy, Bariatric Surgery, Section, Cholecystectomy, Orthopedic Surgery Additional Past Surgical History / Comment(s): 2010 gastric sleeve, EGD/ colonoscopies, D&Cs, R foot bunionectomy, TTT Past Anesthesia/Blood Transfusion Reactions: Postoperative Nausea & Vomiting ( PONV) Additional Past Anesthesia/Blood Transfusion Reaction / Comment(s): CRIES BEFORE AND AFTER PROCEDURES. STATES PONV ONLY AFTER . Past Psychological History: ADD/ADHD, Anxiety, Depression, Panic Disorder, PTSD Smoking Status: Never smoker Past Alcohol Use History: None Reported Past Drug Use History: None Reported - Past Family History Brother(s) Additional Family Medical History / Comment(s): AUTISM Sister(s) Additional Family Medical History / Comment(s): BIPOLAR Son(s) Additional Family Medical History / Comment(s): LEARNING IMPAIRED; BIPOLAR, ADHD. ADHD Mother Family Medical History: Congestive Heart Failure (CHF), Diabetes Mellitus, Osteoarthritis (OA) Additional Family Medical History / Comment(s): anemia, mild heart attack, gout , LIVER DISEASE Father Family Medical History: Thyroid Disorder Additional Family Medical History / Comment(s): Bipolar <Kevon Worthington P - Last Filed: 08/13/18 23:47> General Exam Limitations: no limitations General appearance: alert, in no apparent distress Head exam: Present: atraumatic, normocephalic, normal inspection Eye exam: Present: normal appearance, PERRL, EOMI. Absent: scleral icterus, conjunctival injection, periorbital swelling ENT exam: Present: normal exam, mucous membranes moist Neck exam: Present: normal inspection, full ROM. Absent: tenderness, meningismus, lymphadenopathy Respiratory exam: Present: normal lung sounds bilaterally. Absent: respiratory distress, wheezes, rales, rhonchi, stridor Cardiovascular Exam: Present: regular rate, normal rhythm, normal heart sounds. Absent: systolic murmur, diastolic murmur, rubs, gallop, clicks GI/Abdominal exam: Present: normal bowel sounds Extremities exam: Present: full ROM (full motion of the right thumb), tenderness (Tenderness to the medial aspect of the right fingernail of the right thumb.), other (Moderate-sized paronychia present on the lateral nail fold of the right thumb. No felon present. There is minimal lymphangitic streaking on the right thumb as well.) <Kevon Worthington - Last Filed: 08/13/18 23:47> Vital Signs 08/13/18 08/14/18 21:51 00:28 Temperature 98.6 F 98.9 F Pulse Rate 89 80 Respiratory 16 16 Rate Blood Pressure 157/85 O2 Sat by Pulse 98 100 Oximetry Procedures - Incision & Drainage Consent Obtained: verbal consent Site: other (thumb) Size (cm): 1 Anesthetic Used: lidocaine 1% I&D Cleaning Method: Chloroprep Sterile Field Used?: Yes I&D Drainage Obtained: Pus Culture Obtained?: No Patient Tolerated Procedure: well <Kevon Worthington - Last Filed: 08/13/18 23:47> Medical Decision Making <Kevon Worthington - Last Filed: 08/13/18 23:47> <Paul Mejias - Last Filed: 08/15/18 23:34> - Medical Decision Making 48-year-old female since to the emergency department for chief component of right thumb pain times one week. Patient appears to have a paronychia of the lateral nail fold of the right thumb on presentation. Full range motion in the right thumb. Neurovascular intact. No evidence of felon. This was soaked in warm water and cleaned. It was then drained with an 18-gauge needle. Purulent material was expelled. Patient initially presented with faint minimal lymphangitic streaking of the right thumb that has since resolved throughout her stay. Patient will be given Bactrim in addition to Keflex. She was educated on warm soaks. She will follow up with primary care in 1-2 days and return if she has any worsening symptoms or spreading redness which was discussed with her. (Kevon Worthington) I saw this patient in conjunction with the physician family and divorce legal assistant. I performed independent history and physical exam. Agree with case management. (Paul Mejias) Disposition Is patient prescribed a controlled substance at d/c from ED?: No Time of Disposition: 00:02 <Kevon Worthington - Last Filed: 12/01/18 23:47> <Paul Mejias - Last Filed: 08/15/18 23:34> Clinical Impression: Paronychia Disposition: HOME SELF-CARE Condition: Good Instructions: Paronychia (ED), Warm Compress or Soak (ED) Additional Instructions: Please do warm soaks. Please take Bactrim as directed. Please follow-up with primary care in 1-2 days. Return to the emergency department if you have any worsening symptoms. Prescriptions: Sulfamethox-Tmp 800-160Mg [Bactrim DS 800-160 mg] 1 tab PO Q12HR 10 Days tab Referrals: Bashir Carlson MD [Primary Care Provider] - 1-2 days
[2018-08-14 00:29] VITALS: PULSE 80; TEMP 98.9
== END 2018-08-14 00:28 | disposition home or self-care (01) ==
LOC: EC 21:33
DX: L03.011 Cellulitis of right finger (principal); I10 Essential (primary) hypertension; E11.42 Type 2 diabetes mellitus with diabetic polyneuropathy; M19.90 Unspecified osteoarthritis, unspecified site; E03.9 Hypothyroidism, unspecified; K21.9 Gastro-esophageal reflux disease without esophagitis; Z88.5 Allergy status to narcotic agent; Z88.6 Allergy status to analgesic agent; Z88.8 Allergy status to other drugs, medicaments and biological substances; Z79.01 Long term (current) use of anticoagulants; Z79.82 Long term (current) use of aspirin; Z79.84 Long term (current) use of oral hypoglycemic drugs; Z79.899 Other long term (current) drug therapy; Z86.711 Personal history of pulmonary embolism; Z86.718 Personal history of other venous thrombosis and embolism
CPT/HCPCS: 10060; 99283

== ENCOUNTER 2018-08-24 06:33 | Day surgery (SDC) | payer OTHER ==
[2018-08-22 13:30] VITALS: BMI 52.9
[~2018-08-24 06:33] MED LIST changes: -DEXAMETHASONE SOD PHOSPHATE 10 MG/ML 1 ML VIAL IV ONE; +LIDOCAINE 1% 20 ML VIAL (10MG/ML) FOR IV START INTRADERMA PRN; -MIDAZOLAM 2 MG/2 ML VIAL IV PRN; -Pre Op ABX Message 1 EACH MISC MISCELLANE ONE; -SCOPOLAMINE 1.5MG/72HR PATCH TRANSDERM ONE
[2018-08-24 07:20] VITALS: TEMP 98.2
[2018-08-24 07:29] LABS: Glucose,Whole Blood 196 mg/dL (75-99)
[2018-08-24] MEDS ORDERED: LACTATED RINGERS 1,000 ML IV ONE ×2 (07:29)
[2018-08-24] MEDS ORDERED: PROPOFOL 10 MG/ML 20 ML VIAL IV ONE (07:40)
[2018-08-24] MEDS ORDERED: MIDAZOLAM 2 MG/2 ML VIAL ONE (07:40)
--- NOTE | 2018-08-24 07:41 | P.GSHP ---
History of Present Illness H&P Date: 08/24/18 CHIEF COMPLAINT: Colon screen HISTORY OF PRESENT ILLNESS: The patient is a 48-year-old female who presents for colon screen. Lower endoscopy was offered for further evaluation and management. PAST MEDICAL HISTORY: Please see list. PAST SURGICAL HISTORY: Please see list. MEDICATIONS: Please see list. ALLERGIES: Please see list. SOCIAL HISTORY: No illicit drug use FAMILY HISTORY: No reports of Crohn disease or ulcerative colitis. REVIEW OF ORGAN SYSTEMS: CONSTITUTIONAL: No reports of fevers or chills. PHYSICAL EXAM: VITAL SIGNS: Stable GENERAL: Well-developed pleasant in no acute distress. HEENT: No scleral icterus. Extraocular movements grossly intact. Moist buccal mucosa. NECK: Supple without lymphadenopathy. CHEST: Unlabored respirations. Equal bilateral excursions. CARDIOVASCULAR: Regular rate and rhythm. Distal 2+ pulses. ABDOMEN: Soft, nontender, nondistended. MUSCULOSKELETAL: No clubbing, cyanosis, or edema. ASSESSMENT: 1. Colon screen. PLAN: 1. Recommend proceeding with a lower endoscopy Past Medical History Past Medical History: Chest Pain / Angina, Diabetes Mellitus, Deep Vein Thrombosis (DVT), Fibromyalgia, GERD/Reflux, Hypertension, Osteoarthritis (OA), Pulmonary Embolus (PE), Skin Disorder, Syncope, Thyroid Disorder Additional Past Medical History / Comment(s): "rapid heart rate sice PE", neuropathy bilateral lower legs/feet, SEVERE HEADACHES WITH LIGHT SENSITIVITY, OCCASIONAL HEART PALPITATIONS, HX OF DVT IN R LEG AND SADDLE PE, STATES DOUBLE MARKER FOR MTHFR GENE AND PROTHROMBIN GENE 32024X., LUPUS ENZYMES ELEVATED , ARTHRITIS MULTIPLE JOINTS, CHRONIC BACK PAIN., HIATAL HERNIA, ENDOMETRIAL THICKENING BEING MONITORED, hx kidney stones, ROSACEA. varicose veins History of Any Multi-Drug Resistant Organisms: None Reported Past Surgical History: Appendectomy, Bariatric Surgery, Section, Cholecystectomy, Orthopedic Surgery Additional Past Surgical History / Comment(s): 2010 gastric sleeve, EGD/ colonoscopies, D&Cs, R foot bunionectomy, Tilt table test Past Anesthesia/Blood Transfusion Reactions: Postoperative Nausea & Vomiting ( PONV) Additional Past Anesthesia/Blood Transfusion Reaction / Comment(s): CRIES BEFORE AND AFTER PROCEDURES. STATES PONV ONLY AFTER . Smoking Status: Never smoker - Past Family History Brother(s) Additional Family Medical History / Comment(s): AUTISM Sister(s) Additional Family Medical History / Comment(s): BIPOLAR Son(s) Additional Family Medical History / Comment(s): LEARNING IMPAIRED; BIPOLAR, ADHD. ADHD Mother Family Medical History: Congestive Heart Failure (CHF), Diabetes Mellitus, Osteoarthritis (OA) Additional Family Medical History / Comment(s): carries gene for "blood clots" Father Family Medical History: Thyroid Disorder Additional Family Medical History / Comment(s): Bipolar Medications and Allergies Home Medications Medication Instructions Recorded Confirmed Type Cyclobenzaprine [Flexeril] 5 mg PO HS PRN 06/30/14 08/22/18 History Levothyroxine Sodium [Synthroid] 200 mcg PO AC-BRKFST 07/01/14 08/22/18 History Cholecalciferol [Vitamin D3] 5,000 unit PO DAILY 07/13/14 08/22/18 History Nitroglycerin Sl Tabs [Nitrostat] 0.4 mg SUBLINGUAL Q5M PRN #25 tab 08/27/1406/30 Rx clonazePAM [KlonoPIN] 1 mg PO BID PRN 10/15/14 08/22/18 History Apixaban [Eliquis] 2.5 mg PO BID 05/17/15 08/22/18 History HYDROcodone/APAP 10-325MG [[place] 1 tab PO TID PRN 05/26/17 08/22/18 History 10-325] Metoprolol Succinate (ER) [Toprol 25 mg PO DAILY 05/26/17 08/22/18 History XL] Omeprazole [PriLOSEC] 20 mg PO BID 05/26/17 08/22/18 History Canagliflozin/Metformin HCl 1 tab PO DAILY 04/28/18 08/22/18 History [Invokamet 150-500 mg Tablet] glipiZIDE XL [Glucotrol XL] 10 mg PO DAILY 04/28/18 08/22/18 History Sulfamethox-Tmp 800-160Mg [Bactrim 1 tab PO Q12HR 10 Days tab 08/14/18 Rx DS 800-160 mg] Calcium Carbonate [Tums] 1,000 mg PO QID PRN 08/22/18 08/22/18 History Cephalexin [Keflex] 500 mg PO Q6HR 08/22/18 08/22/18 History Fluconazole [Diflucan] 150 mg PO MO 08/22/18 08/22/18 History Allergies Allergy/AdvReac Type Severity Reaction Status Date / Time meperidine HCl [From Demerol] Allergy Severe Chest Pain Verified 08/22/18 13:07 morphine Allergy Severe Chest Pain Verified 08/22/18 13:07 rivaroxaban [From Xarelto] Allergy Severe Rapid Verified 08/22/18 13:07 Heart Rate, blacks out, very ill bupropion [From Wellbutrin] Allergy Unknown AGITATED, Verified 08/22/18 13:07 TWITCHING OF EYES. adhesive tape Allergy pulls skin Verified 08/22/18 13:31 off aspirin Allergy can not Verified 08/22/18 13:31 take duloxetine HCl Allergy Unknown Verified 08/22/18 13:07 [From Cymbalta] NSAIDS (Non-Steroidal AdvReac Unknown STATES SHE Verified 08/22/18 13:08 Anti-Inflamma IS NOT SUPPOSED TO TAKE NSAIDS naproxen AdvReac Nausea & Verified 08/22/18 13:07 Vomiting sertraline [From Zoloft] AdvReac Rapid Verified 08/22/18 13:07 Heart Rate Surgical - Exam Vital Signs Temp Pulse Resp BP Pulse Ox 98.2 F 101 H 20 154/76 98 08/24/18 07:19 08/24/18 07:19 08/24/18 07:19 08/24/18 07:19 08/24/18 07:19 Results - Labs Abnormal Lab Results - Last 24 Hours (Table) 08/24/18 Range/Units 07:27 POC Glucose (mg/dL) 196 H (75-99) mg/dL
--- NOTE | 2018-08-24 08:07 | P.PCN ---
Date of Procedure: 08/24/18 Description of Procedure: PREOPERATIVE DIAGNOSIS: High familial risk of colon cancer Rectal bleeding Personal history of colon polyps POSTOPERATIVE DIAGNOSIS: High familial risk of colon cancer Rectal bleeding Personal history of colon polyps Poor colonoscopy prep Complicated bleeding internal hemorrhoids OPERATION: Colonoscopy to the ileocecal valve and appendiceal orifice. SURGEON: Lorie Tubbs MD. ANESTHESIA: MAC. INDICATIONS: The patient is a 48-year-old female who presents for rectal bleeding. Benefits and risks were described and informed consent was obtained. DESCRIPTION OF PROCEDURE: The patient had undergone Gatorade, MiraLAX and Dulcolax prep. She had been brought into the operating room and laid in the left lateral decubitus position. After adequate intravenous sedation, the rectum was examined with 2% lidocaine jelly. External hemorrhoids were encountered. The rectal tone was within normal limits. No lesions were palpated in the rectal vault. An Olympus colonoscope was advanced until the ileocecal valve and appendiceal orifice were clearly viewed. The prep was poor with liquid stool obscuring complete views of the mucosa. No scattered diverticulosis was encountered. No large adeomas were found despite her poor prep. No evidence of focal colitis was found. Retroflexion of the scope demonstrated grade 2 internal hemorrhoids with active inflammation. The colon was desufflated. The patient had tolerated the procedure well. Withdrawal time was over 6 minutes. FINDINGS: Internal hemorrhoids, grade 2, with recent bleed External prolapsed hemorrhoids, grade 2 No arteriovenous malformations. No adenomatous polyps. No scattered diverticulosis No focal colitis. RECOMMENDATIONS: Repeat lower endoscopy in 2 years with high risks from personal and familial history, 2019 Plan - Discharge Summary New Discharge Prescriptions: No Action Cyclobenzaprine [Flexeril] 5 mg PO HS PRN PRN Reason: Pain Levothyroxine Sodium [Synthroid] 200 mcg PO AC-BRKFST Cholecalciferol [Vitamin D3] 5,000 unit PO DAILY Nitroglycerin Sl Tabs [Nitrostat] 0.4 mg SUBLINGUAL Q5M PRN #25 tab PRN Reason: Chest Pain clonazePAM [KlonoPIN] 1 mg PO BID PRN PRN Reason: Anxiety Apixaban [Eliquis] 2.5 mg PO BID HYDROcodone/APAP 10-325MG [[place] 10-325] 1 tab PO TID PRN PRN Reason: Pain Omeprazole [PriLOSEC] 20 mg PO BID Metoprolol Succinate (ER) [Toprol XL] 25 mg PO DAILY glipiZIDE XL [Glucotrol XL] 10 mg PO DAILY Canagliflozin/Metformin HCl [Invokamet 150-500 mg Tablet] 1 tab PO DAILY Sulfamethox-Tmp 800-160Mg [Bactrim DS 800-160 mg] 1 tab PO Q12HR 10 Days tab Fluconazole [Diflucan] 150 mg PO MO Cephalexin [Keflex] 500 mg PO Q6HR Calcium Carbonate [Tums] 1,000 mg PO QID PRN PRN Reason: Heartburn Discharge Medication List Cyclobenzaprine [Flexeril] 5 mg PO HS PRN 06/30/14 [History] Levothyroxine Sodium [Synthroid] 200 mcg PO AC-BRKFST 07/01/14 [History] Cholecalciferol [Vitamin D3] 5,000 unit PO DAILY 07/13/14 [History] Nitroglycerin Sl Tabs [Nitrostat] 0.4 mg SUBLINGUAL Q5M PRN #25 tab 08/27/14 [Rx ] clonazePAM [KlonoPIN] 1 mg PO BID PRN 10/15/14 [History] Apixaban [Eliquis] 2.5 mg PO BID 05/17/15 [History] HYDROcodone/APAP 10-325MG [[place] 10-325] 1 tab PO TID PRN 05/26/17 [History] Metoprolol Succinate (ER) [Toprol XL] 25 mg PO DAILY 05/26/17 [History] Omeprazole [PriLOSEC] 20 mg PO BID 05/26/17 [History] Canagliflozin/Metformin HCl [Invokamet 150-500 mg Tablet] 1 tab PO DAILY [History] glipiZIDE XL [Glucotrol XL] 10 mg PO DAILY 04/28/18 [History] Sulfamethox-Tmp 800-160Mg [Bactrim DS 800-160 mg] 1 tab PO Q12HR 10 Days tab [Rx] Calcium Carbonate [Tums] 1,000 mg PO QID PRN 08/22/18 [History] Cephalexin [Keflex] 500 mg PO Q6HR 08/22/18 [History] Fluconazole [Diflucan] 150 mg PO MO 08/22/18 [History]
[2018-08-24 08:27] VITALS: BP 123/83; PULSE 75; RESP 18
== END 2018-08-24 08:45 | disposition home or self-care (01) ==
LOC: ORWHC2ENDO 06:33
PROVIDERS: ATTEND Surgery Plastic and Reconstructive Surgery
DX: K64.1 Second degree hemorrhoids (principal); K64.8 Other hemorrhoids; Z86.010 Personal history of colon polyps; R07.9 Chest pain, unspecified; M79.7 Fibromyalgia; K21.9 Gastro-esophageal reflux disease without esophagitis; I10 Essential (primary) hypertension; M19.90 Unspecified osteoarthritis, unspecified site; E07.9 Disorder of thyroid, unspecified; L71.9 Rosacea, unspecified; E11.40 Type 2 diabetes mellitus with diabetic neuropathy, unspecified; R51 Headache; R00.2 Palpitations; M54.9 Dorsalgia, unspecified; G89.29 Other chronic pain; I83.90 Asymptomatic varicose veins of unspecified lower extremity; E66.01 Morbid (severe) obesity due to excess calories; Z68.43 Body mass index [BMI] 50.0-59.9, adult; Z79.2 Long term (current) use of antibiotics; Z79.01 Long term (current) use of anticoagulants; Z79.84 Long term (current) use of oral hypoglycemic drugs; Z79.890 Hormone replacement therapy; Z79.899 Other long term (current) drug therapy; Z88.6 Allergy status to analgesic agent; Z88.5 Allergy status to narcotic agent; Z88.8 Allergy status to other drugs, medicaments and biological substances; Z91.048 Other nonmedicinal substance allergy status; Z90.49 Acquired absence of other specified parts of digestive tract; Z98.84 Bariatric surgery status; Z86.718 Personal history of other venous thrombosis and embolism; Z86.711 Personal history of pulmonary embolism; Z87.442 Personal history of urinary calculi
CPT/HCPCS: 81025; 45378; J2250; J2704

== ENCOUNTER 2019-06-12 21:57 | Emergency (ER) | payer OTHER ==
--- NOTE | 2019-06-12 22:41 | ED ---
Chest Pain HPI - General Chief Complaint: Chest Pain Stated Complaint: chest pain Time Seen by Provider: 06/12/19 22:23 Source: patient Mode of arrival: ambulatory Limitations: no limitations - History of Present Illness Initial Comments: This patient is a 49-year-old woman with history of previous DVT/PE who presents after developing substernal burning type chest pain. The patient states that she was fairly certain that was brought on by anxiety, but she has history of PE and was concerned about possibility of a blood clot. Patient denies dyspnea. No palpitations. No leg pain or swelling. No diaphoresis MD Complaint: chest pain -: hour(s) Onset: during rest Pain Location: substernal Pain Radiation: none Quality: other (Burning) Consistency: constant Improves With: nothing Worsens With: nothing Anginal Symptoms: nausea, sense of impending doom Treatments Prior to Arrival: other (Klonopin) - Related Data Home Medications Medication Instructions Recorded Confirmed Cyclobenzaprine [Flexeril] 5 mg PO TID 06/30/14 06/12/19 Levothyroxine Sodium [Synthroid] 200 mcg PO AC-BRKFST 07/01/14 06/12/19 Apixaban [Eliquis] 2.5 mg PO BID 05/17/15 06/12/19 HYDROcodone/APAP 10-325MG [[place] 1 tab PO QID PRN 05/26/17 06/12/19 10-325] Metoprolol Succinate (ER) [Toprol 25 mg PO DAILY 05/26/17 06/12/19 XL] Omeprazole [PriLOSEC] 20 mg PO BID 05/26/17 06/12/19 Canagliflozin/Metformin HCl 1 tab PO BID 04/28/18 06/12/19 [Invokamet 150-500 mg Tablet] glipiZIDE XL [Glucotrol XL] 10 mg PO DAILY 04/28/18 06/12/19 clonazePAM [KlonoPIN] 1 mg PO BID 06/12/19 06/12/19 sitaGLIPtin PHOSPHATE [Januvia] 100 mg PO DAILY 06/12/19 06/12/19 Previous Rx's Medication Instructions Recorded Nitroglycerin Sl Tabs [Nitrostat] 0.4 mg SUBLINGUAL Q5M PRN #25 tab 08/27/14 Allergies Allergy/AdvReac Type Severity Reaction Status Date / Time meperidine HCl [From Demerol] Allergy Severe Chest Pain Verified 06/12/19 22:35 morphine Allergy Severe Chest Pain Verified 06/12/19 22:35 rivaroxaban [From Xarelto] Allergy Severe Rapid Verified 06/12/19 22:35 Heart Rate, blacks out, very ill bupropion [From Wellbutrin] Allergy Unknown AGITATED, Verified 06/12/19 22:35 TWITCHING OF EYES. adhesive tape Allergy pulls skin Verified 06/12/19 22:35 off aspirin Allergy can not Verified 06/12/19 22:35 take duloxetine HCl Allergy Unknown Verified 06/12/19 22:35 [From Cymbalta] NSAIDS (Non-Steroidal AdvReac Unknown STATES SHE Verified 06/12/19 22:35 Anti-Inflamma IS NOT SUPPOSED TO TAKE NSAIDS naproxen AdvReac Nausea & Verified 06/12/19 22:35 Vomiting sertraline [From Zoloft] AdvReac Rapid Verified 06/12/19 22:35 Heart Rate Review of Systems ROS Statement: Those systems with pertinent positive or pertinent negative responses have been documented in the HPI. ROS Other: All systems not noted in ROS Statement are negative. Constitutional: Denies: fever, chills Respiratory: Denies: cough, dyspnea, hemoptysis Cardiovascular: Reports: chest pain. Denies: palpitations, syncope Gastrointestinal: Denies: abdominal pain, nausea, vomiting Genitourinary: Denies: dysuria, hematuria Musculoskeletal: Denies: back pain Skin: Denies: rash Neurological: Denies: headache, weakness, numbness Psychiatric: Reports: anxiety EKG Findings - EKG Results: EKG: interpreted by ERMD, sinus rhythm (With PVC), normal axis, normal QRS, normal ST/T EKG shows: tachycardia (Rate 118 bpm) Past Medical History Past Medical History: Chest Pain / Angina, Diabetes Mellitus, Deep Vein Thrombosis (DVT), Fibromyalgia, GERD/Reflux, Hypertension, Osteoarthritis (OA), Pulmonary Embolus (PE), Skin Disorder, Syncope, Thyroid Disorder Additional Past Medical History / Comment(s): "rapid heart rate sice PE",neuropathy bilateral lower legs/feet, SEVERE HEADACHES WITH LIGHT SENSITIVITY, OCCASIONAL HEART PALPITATIONS, HX OF DVT IN R LEG AND SADDLE PE, STATES DOUBLE MARKER FOR MTHFR GENE AND PROTHROMBIN GENE [id number]., LUPUS ENZYMES ELEVATED , ARTHRITIS MULTIPLE JOINTS, CHRONIC BACK PAIN., HIATAL HERNIA, ENDOMETRIAL THICKENING BEING MONITORED, hx kidney stones, ROSACEA. varicose veins History of Any Multi-Drug Resistant Organisms: None Reported Past Surgical History: Appendectomy, Bariatric Surgery, Section, Cholecystectomy, Orthopedic Surgery Additional Past Surgical History / Comment(s): 2010 gastric sleeve, EGD/colonoscopies, D&Cs, R foot bunionectomy, Tilt table test Past Anesthesia/Blood Transfusion Reactions: Postoperative Nausea & Vomiting (PONV) Additional Past Anesthesia/Blood Transfusion Reaction / Comment(s): CRIES BEFORE AND AFTER PROCEDURES. STATES PONV ONLY AFTER . Past Psychological History: ADD/ADHD, Anxiety, Depression, Panic Disorder, PTSD Smoking Status: Never smoker Past Alcohol Use History: None Reported Past Drug Use History: None Reported - Past Family History Brother(s) Additional Family Medical History / Comment(s): AUTISM Sister(s) Additional Family Medical History / Comment(s): BIPOLAR Son(s) Additional Family Medical History / Comment(s): LEARNING IMPAIRED; BIPOLAR, ADHD. ADHD Mother Family Medical History: Congestive Heart Failure (CHF), Diabetes Mellitus, Osteoarthritis (OA) Additional Family Medical History / Comment(s): carries gene for "blood clots" Father Family Medical History: Thyroid Disorder Additional Family Medical History / Comment(s): Bipolar General Exam Limitations: no limitations General appearance: alert, in no apparent distress Head exam: Present: atraumatic, normocephalic Eye exam: Present: normal appearance. Absent: scleral icterus, conjunctival injection ENT exam: Present: normal oropharynx Respiratory exam: Present: normal lung sounds bilaterally. Absent: respiratory distress, wheezes, rales, rhonchi, stridor Cardiovascular Exam: Present: regular rate, normal rhythm, normal heart sounds. Absent: systolic murmur, diastolic murmur, rubs, gallop GI/Abdominal exam: Present: soft. Absent: distended, tenderness, guarding, rebound, rigid Extremities exam: Present: normal inspection, normal capillary refill, other (No Homans sign or palpable cord). Absent: pedal edema, calf tenderness Skin exam: Present: warm, dry, intact, normal color. Absent: rash Course Vital Signs 06/12/19 06/12/19 06/13/19 21:58 23:53 00:15 Temperature 99.4 F Pulse Rate 119 H 140 H 123 H Respiratory 18 19 18 Rate Blood Pressure 164/91 162/93 146/117 O2 Sat by Pulse 97 100 99 Oximetry 06/13/19 06/13/19 00:54 02:49 Temperature 97.9 F Pulse Rate 120 H 118 H Respiratory 20 20 Rate Blood Pressure 157/91 139/79 O2 Sat by Pulse 98 98 Oximetry Disposition Clinical Impression: Chest pain, Sinus tachycardia by electrocardiogram Disposition: ADMITTED IP TO THIS HOSP Condition: Fair Is patient prescribed a controlled substance at d/c from ED?: No Referrals: Bashir Carlson MD [Primary Care Provider] - 1-2 days
[2019-06-12 22:45] LABS: Anisocytosis Slight; Basophils # (A) 0.2 k/uL (0-0.2); Basophils % (A) 2 %; Eosinophils # (A) 0.1 k/uL (0-0.7); Eosinophils % (A) 1 %; HCT 37.5 % (34.0-46.0); HGB 11.5 gm/dL (11.4-16.0); Hypochromasia Marked; Lymphocytes # (A) 1.5 k/uL (1.0-4.8); Lymphocytes % (A) 13 %; MCH 20.9 pg (25.0-35.0); MCHC 30.6 g/dL (31.0-37.0); MCV 68.1 fL (80.0-100.0); Mean Platelet Volume 8.5; Microcytosis Marked; Monocytes # (A) 0.6 k/uL (0-1.0); Monocytes % (A) 5 %; Neutrophils # (A) 8.9 k/uL (1.3-7.7); Neutrophils % (A) 79 %; Platelet Count 295 k/uL (150-450); RBC 5.51 m/uL (3.80-5.40); RDW 17.2 % (11.5-15.5); WBC 11.4 k/uL (3.8-10.6)
--- NOTE | 2019-06-12 22:51 | XR ---
EXAMINATION TYPE: XR chest 2V DATE OF EXAM: 06/12/2019 COMPARISON: May 15, 2016 HISTORY: Chest pain TECHNIQUE: Frontal and lateral views of the chest are obtained. FINDINGS: Heart and mediastinum are normal. Lungs are clear. Diaphragm is normal. There are chest le ads. Bony thorax is intact. IMPRESSION: No active cardiopulmonary disease. No change.
[2019-06-12 22:55] LABS: ALT 30 U/L (9-52); AST 36 U/L (14-36); African American GFR (CKD) >90 (>60 ml/min/1.73 sqM); Alkaline Phosphatase 77 U/L (38-126); Amylase 51 U/L (30-110); Anion Gap 17 mmol/L; Blood Urea Nitrogen 12 mg/dL (7-17); Calcium 9.6 mg/dL (8.4-10.2); Carbon Dioxide 18 mmol/L (22-30); Chloride 102 mmol/L (98-107); Glucose 269 mg/dL (74-99); Magnesium 1.7 mg/dL (1.6-2.3); Potassium 4.4 mmol/L (3.5-5.1); Sodium 137 mmol/L (137-145); Total Bilirubin 0.6 mg/dL (0.2-1.3); Total Protein 7.2 g/dL (6.3-8.2)
[2019-06-12 22:59] LABS: INR 0.9 (<1.2)
[2019-06-12 23:00] LABS: D-Dimer 0.44 mg/L FEU (<0.60); Partial Thromboplastin Time 23.9 sec (22.0-30.0); Prothrombin Time 9.6 sec (9.0-12.0)
[2019-06-12] MEDS ORDERED: INSULIN REGULAR 100 UNIT/ML VIAL SQ STA (23:19)
[2019-06-12] MEDS ORDERED: SODIUM CHLORIDE 0.9% 1,000 ML IV ONE (23:19)
[2019-06-13 00:54] VITALS: RESP 20
[2019-06-13] MEDS ORDERED: NITROGLYCERIN SL TABS 0.4 MG TAB SUBLINGUAL PRN (02:23)
[2019-06-13] MEDS ORDERED: HYDROcodone/APAP 10-325MG 1 EACH TAB PO PRN (02:27)
[2019-06-13 02:51] VITALS: BP 139/79; PULSE 118; TEMP 97.9
[2019-06-13] MEDS ORDERED: LEVOTHYROXINE 100 MCG TAB PO SCH (07:30)
[2019-06-13] MEDS ORDERED: INSULIN ASPART (NovoLOG) 100 UNIT/ML VIAL SQ SCH (07:30)
[2019-06-13] MEDS ORDERED: CANAGLIFLOZIN PO SCH (09:00)
[2019-06-13] MEDS ORDERED: LINAGLIPTIN 5 MG TABLET PO SCH (09:00)
[2019-06-13] MEDS ORDERED: glipiZIDE 5 MG TAB PO SCH (09:00)
[2019-06-13] MEDS ORDERED: clonazePAM 1 MG TAB PO SCH (09:00)
[2019-06-13] MEDS ORDERED: APIXABAN 2.5 MG TABLET PO SCH (09:00)
[2019-06-13] MEDS ORDERED: METFORMIN HCL PO SCH (09:00)
[2019-06-13] MEDS ORDERED: PANTOPRAZOLE 40 MG TABLET PO SCH (09:00)
[2019-06-13] MEDS ORDERED: METOPROLOL SUCCINATE (ER) 25 MG TAB.ER.24H PO SCH (09:00)
[2019-06-13] MEDS ORDERED: CYCLOBENZAPRINE 5 MG TAB PO SCH (09:00)
== END 2019-06-13 02:42 | disposition other institution (70) ==
LOC: EC 21:57 → UNDOADMOB 06-13 02:27 → 3SCARD 06-13 02:27 → EC 06-13 02:42
DX: R07.9 Chest pain, unspecified (principal); R00.0 Tachycardia, unspecified; I25.2 Old myocardial infarction; F32.9 Major depressive disorder, single episode, unspecified; F41.9 Anxiety disorder, unspecified; F90.9 Attention-deficit hyperactivity disorder, unspecified type; I10 Essential (primary) hypertension; K21.9 Gastro-esophageal reflux disease without esophagitis; M32.9 Systemic lupus erythematosus, unspecified; M79.7 Fibromyalgia; M19.90 Unspecified osteoarthritis, unspecified site; E07.9 Disorder of thyroid, unspecified; E11.40 Type 2 diabetes mellitus with diabetic neuropathy, unspecified; Z79.01 Long term (current) use of anticoagulants; Z79.84 Long term (current) use of oral hypoglycemic drugs; Z79.82 Long term (current) use of aspirin; Z79.899 Other long term (current) drug therapy; Z88.5 Allergy status to narcotic agent; Z88.8 Allergy status to other drugs, medicaments and biological substances; Z91.048 Other nonmedicinal substance allergy status; Z88.6 Allergy status to analgesic agent; Z86.718 Personal history of other venous thrombosis and embolism; Z98.84 Bariatric surgery status; Z86.711 Personal history of pulmonary embolism; Z82.49 Family history of ischemic heart disease and other diseases of the circulatory system; Z83.3 Family history of diabetes mellitus
CPT/HCPCS: 36415; 71046; 80053; 82150; 83690; 83735; 84484; 85025; 85379; 85610; 85730; 93005; 96360; 99285

== ENCOUNTER → 2021-12-25 | Outpatient (CLI) | payer BC ==
--- NOTE | 2021-12-25 14:49 | MM ---
Reason for exam: clinical finding. Last mammogram was performed 3 years and 5 months ago. Physical Findings: A clinical breast exam by your physician is recommended on an annual basis and results should be correlated with mammographic findings. MG 3D Diag Mammo W/Cad SHERIF Bilateral CC and MLO view(s) were taken. Prior study comparison: August 10, 2018, bilateral MG 3d diag mammo w/cad [facility]. July 29, 2017, bilateral MG 3d diag mammo w/cad SHERIF. There are scattered fibroglandular densities. No significant new findings when compared with previous films. Results were given to the patient verbally at the time of the exam. ASSESSMENT: Negative, BI-RAD 1 RECOMMENDATION: Routine screening mammogram of both breasts in 1 year. Manage on a clinical basis with regard to any palpable area. If a palpable area recurs, she can return to be scanned.
== END | disposition home or self-care (01) ==
LOC: RADMAMWWP 13:52
PROVIDERS: ATTEND Family Medicine
DX: N63.0 Unspecified lump in unspecified breast (principal)
CPT/HCPCS: 77062; 77066

== ENCOUNTER → 2022-07-27 | Outpatient (CLI) | payer BC ==
--- NOTE | 2022-07-27 13:20 | CT ---
EXAMINATION TYPE: CT lumbar spine wo con DATE OF EXAM: 07/27/2022 COMPARISON: None HISTORY: 52-year-old female M1 9.90, Low back pain TECHNIQUE: Contiguous axial scanning of the lumbar spine without IV contrast. Coronal and sagittal re constructions performed. CT DLP: 1685 mGycm Automated exposure control for dose reduction was used. FINDINGS: There is severe hypertrophic facet arthropathy mid to lower lumbar spine. There appears to be some lj ny ankylosis posterior elements L4-L5 with a fixed grade 1 anterolisthesis at this level. No is artifact from large patient body habitus. Mild spinal canal narrowing suggested at L4-L5 from the anterolisthesis. Mild disc bulge at L3-L4 impressing on the ventral thecal sac minimally narrowing the spinal canal at this level as well. No high-grade canal compromise seen allowing for CT technique. There is moderate degenerative disc disease L5-S1 with disc space narrowing and some vacuum phenomeno n. On the right, changes result in moderate neuroforaminal narrowing at L5-S1 and mild at L3-L4. On the left, changes result in moderate to severe neuroforaminal narrowing at L5-S1 and mild at L3-L4 and L4-L5. IMPRESSION: 1. SOME LIMITATIONS DUE TO NOISE ARTIFACT. 2. Fixed grade 1 anterolisthesis at L4-L5 secondary to severe hypertrophic facet arthropathy and dege nerative bony ankylosis across the posterior elements. Mild overall spinal canal narrowing at this le salas. 3. Mild disc bulge at L3-L4 contributing to minimal narrowing of the spinal canal. 4. Moderate degenerative disc disease L5-S1. 5. Variable neuroforaminal stenoses L3-L4, L4-L5, and L5-S1 as outlined above.
== END | disposition home or self-care (01) ==
LOC: RADCTMAIN 09:15
PROVIDERS: ATTEND Family Medicine
DX: M47.816 Spondylosis without myelopathy or radiculopathy, lumbar region (principal); M51.37 Other intervertebral disc degeneration, lumbosacral region; M51.36 Other intervertebral disc degeneration, lumbar region; M48.061 Spinal stenosis, lumbar region without neurogenic claudication; M99.74 Connective tissue and disc stenosis of intervertebral foramina of sacral region
CPT/HCPCS: 72131

== ENCOUNTER → 2022-09-25 | Outpatient (CLI) | payer BC ==
--- NOTE | 2022-09-25 09:58 | US ---
EXAMINATION TYPE: US thyroid st tissue head/neck DATE OF EXAM: 09/25/2022 COMPARISON: NONE CLINICAL HISTORY: E03.9 hypothroidism unsp. Hypothyroid GLAND SIZE: Right Lobe: 3.0 x 0.8 x 1.1 cm Overall Parenchyma: heterogenous Left Lobe: 3.5 x 0.9 x 1.0 cm Overall Parenchyma: heterogeneous Isthmus Thickness: 0.2 cm NODULES RIGHT: # of nodules measured on right: 0 LEFT: # of nodules measured on left: 0 ISTHMUS: # of nodules measured in the isthmus: 0 Bilateral neck scanned, no evidence of lymphadenopathy. Small, heterogeneous thyroid without evidenc e of nodules bilaterally. IMPRESSION: Small heterogenous thyroid gland without discrete nodules identified.
[2022-09-25 16:32] LABS: ALT 38 U/L (8-44); AST 32 U/L (13-35); African American GFR (CKD) 74.1 (60.0-200.0); Albumin 4.2 g/dL (3.8-4.9); Albumin/Globulin Ratio 1.48 (1.60-3.17); Alkaline Phosphatase 81 U/L (41-126); BUN/Creat Ratio 14.16 Ratio (12.00-20.00); Blood Urea Nitrogen 14.3 mg/dL (9.0-27.0); Calcium 9.6 mg/dL (8.7-10.3); Chloride 99 mmol/L (96-109); Chol/HDL Ratio 3.73 Ratio; Globulin 2.9 g/dL (1.6-3.3); Glucose 272 mg/dL (70-110); LDL Cholesterol,Calculated 114.4 mg/dL (0.0-131.0); Lipase 43 U/L (14-63); Potassium 4.2 mmol/L (3.5-5.5); Sodium 139 mmol/L (135-145); Total Protein 7.1 g/dL (6.2-8.2)
== END | disposition home or self-care (01) ==
LOC: RADUSWWP 09:01
PROVIDERS: ATTEND Internal Medicine
DX: E03.9 Hypothyroidism, unspecified (principal); E11.65 Type 2 diabetes mellitus with hyperglycemia
CPT/HCPCS: 76536; 80053; 80061; 83036; 83690; 84439; 84443

== ENCOUNTER → 2022-12-15 | Outpatient (CLI) | payer BC ==
--- NOTE | 2022-12-16 10:52 | MM ---
Reason for Exam: Screening (asymptomatic). Last screening mammogram was performed 12 month(s) ago. Patient History: Menarche at age 10. Perimenopausal. Last menstrual period: 09/12/2022 Risk Values: Bonnie 5 year model risk: 0.8%. NCI Lifetime model risk: 6.9%. Prior Study Comparison: 07/29/2017 Bilateral Diagnostic Mammogram, [facility]. 08/10/2018 Bilateral Diagnostic Mammogram, [facility]. 12/25/2021 Bilateral Diagnostic Mammogram, [facility]. Tissue Density: There are scattered fibroglandular densities. Findings: Analyzed By CAD. There is no suspicious new group of microcalcifications or new suspicious mass in either breast. Overall Assessment: Negative, BI-RAD 1 Management: Screening Mammogram of both breasts in 1 year. A clinical breast exam by your physician is recommended on an annual basis and results should be correlated with mammographic findings. Electronically signed and approved by: Rajesh Hidalgo M.D.
== END | disposition home or self-care (01) ==
LOC: RADMAMWWP 07:43
PROVIDERS: ATTEND Family Medicine
DX: Z12.31 Encounter for screening mammogram for malignant neoplasm of breast (principal)
CPT/HCPCS: 77063; 77067

== ENCOUNTER → 2023-02-15 | Outpatient (CLI) | payer BC | END | disposition home or self-care (01) | LOC: LABWHC1 08:36 | PROVIDERS: ATTEND Family Medicine | DX: E11.65 Type 2 diabetes mellitus with hyperglycemia (principal) | CPT/HCPCS: 36415; 83036 ==

== ENCOUNTER → 2023-09-01 | Outpatient (CLI) | payer BC | END | disposition home or self-care (01) | LOC: LABWHC1 13:06 | PROVIDERS: ATTEND Internal Medicine | DX: E11.65 Type 2 diabetes mellitus with hyperglycemia (principal) | CPT/HCPCS: 36415; 83036 ==

== ENCOUNTER → 2024-01-01 | Outpatient (CLI) | payer BC ==
[2024-01-01 14:53] LABS: ALT 18 U/L (8-44); AST 16 U/L (13-35); Albumin 3.9 g/dL (3.8-4.9); Alkaline Phosphatase 78 U/L (41-126); BUN/Creat Ratio 15.67 Ratio (12.00-20.00); Blood Urea Nitrogen 14.1 mg/dL (9.0-27.0); Calcium 9.5 mg/dL (8.7-10.3); Carbon Dioxide 27.8 mmol/L (21.6-31.8); Chloride 103 mmol/L (96-109); Chol/HDL Ratio 3.56 Ratio; Glucose 150 mg/dL (70-110); LDL Cholesterol,Calculated 113.8 mg/dL (0.0-131.0); Potassium 4.4 mmol/L (3.5-5.5); Sodium 141 mmol/L (135-145); Total Bilirubin 0.6 mg/dL (0.3-1.2); Total Protein 6.9 g/dL (6.2-8.2)
[2024-01-01 22:34] LABS: Microalbumin Creatinine Ratio <7 mg/g Cr (0-30)
== END | disposition home or self-care (01) ==
LOC: LABWHC1 07:59
PROVIDERS: ATTEND Internal Medicine
DX: E11.65 Type 2 diabetes mellitus with hyperglycemia (principal); E03.9 Hypothyroidism, unspecified
CPT/HCPCS: 36415; 80053; 80061; 82043; 82570; 83036; 84439; 84443

== ENCOUNTER → 2024-03-07 | Outpatient (CLI) | payer BC ==
--- NOTE | 2024-03-08 08:38 | MM ---
Reason for Exam: Screening (asymptomatic). Last mammogram was performed 1 year(s) and 2 month(s) ago. Patient History: Menarche at age 10. Perimenopausal. Risk Values: Bonnie 5 year model risk: 0.9%. NCI Lifetime model risk: 6.8%. Prior Study Comparison: 08/10/2018 Bilateral Diagnostic Mammogram, [facility]. 12/25/2021 Bilateral Diagnostic Mammogram, [facility]. 12/15/2022 Bilateral MG 3D screening mammo w/cad, [facility]. Tissue Density: There are scattered areas of fibroglandular density. Findings: Analyzed By CAD. There is no suspicious group of microcalcifications or new suspicious mass in either breast. Overall Assessment: Negative, BI-RAD 1 Management: Screening Mammogram of both breasts in 1 year. . Patient should continue monthly self-breast exams. A clinical breast exam by your physician is recommended on an annual basis. This exam should not preclude additional follow-up of suspicious palpable abnormalities. Note on Bonnie scores and lifetime risk: 1. A Bonnie score greater than 3% is considered moderate risk. If this is the case, consider specialist referral to assess eligibility for a risk reducing agent. 2. If overall lifetime risk for the development of breast cancer is 20% or higher, the patient may qualify for future screening with alternating mammogram and breast MRI. Electronically signed and approved by: Michel Price M.D. Radiologis
== END | disposition home or self-care (01) ==
LOC: RADMAMWWP 15:13
PROVIDERS: ATTEND Internal Medicine
DX: Z12.31 Encounter for screening mammogram for malignant neoplasm of breast (principal); D68.69 Other thrombophilia; D24.2 Benign neoplasm of left breast; I82.529 Chronic embolism and thrombosis of unspecified iliac vein; I26.92 Saddle embolus of pulmonary artery without acute cor pulmonale
CPT/HCPCS: 77063; 77067

== ENCOUNTER → 2024-06-02 | Outpatient (CLI) | payer BC ==
[2024-06-02 12:39] LABS: African American GFR (CKD) >90 (>60 ml/min/1.73 sqM); Anion Gap 3 mmol/L; Blood Urea Nitrogen 9 mg/dL (7-17); Calcium 9.6 mg/dL (8.4-10.2); Carbon Dioxide 32 mmol/L (22-30); Chloride 103 mmol/L (98-107); Glucose 130 mg/dL (74-99); Non-African American GFR(CKD) 84 (>60 ml/min/1.73 sqM); Potassium 4.2 mmol/L (3.5-5.1); Sodium 138 mmol/L (137-145)
--- NOTE | 2024-06-02 14:16 | CT ---
CTA abdomen and bilateral lower extremities. HISTORY: Bilateral leg swelling and decreased temperature the extremities. COMPARISON: None. TECHNIQUE: Multiple axial images are obtained through the abdomen, pelvis and lower extremities follo wing the uneventful administration of nonionic IV contrast. Exam was performed according to the abdom en, pelvis and lower extremities CTA protocol. FINDINGS: Inflow CTA: The aorta and bilateral iliac vessels are patent without stenosis or filling defect. There are no ane urysmal dilatations. There are no atheromatous calcifications. There is no significant inflow stenosi s. Outflow stenosis. Common femoral, superficial femoral, profunda femoral and popliteal arteries are widely patent bilate rally without significant stenosis or filling defect or aneurysmal dilatation. There are no atheromat ous calcifications. There is no significant outflow disease.. Runoff CTA: The trifurcation vessels are widely patent. There are no atheromatous calcifications and no stenoses. There is three-vessel runoff bilaterally. Nonvascular findings: There are no renal calcifications or hydronephrosis. The bowel loops are normal in caliber and is no evidence of obstruction. IMPRESSION: No significant arterial disease in the abdomen, pelvis or lower extremities. [facility], Workstation: TA, 06/02/2024 2:13 PM
== END | disposition home or self-care (01) ==
LOC: RADCTMAIN 11:54
PROVIDERS: ATTEND Internal Medicine
DX: I99.8 Other disorder of circulatory system
CPT/HCPCS: 36415; 80048; 83036

== ENCOUNTER → 2025-01-08 | Outpatient (CLI) | payer BC ==
--- NOTE | 2025-01-08 21:43 | XR ---
EXAMINATION TYPE: XR chest 2V DATE OF EXAM: 01/08/2025 3:30 PM COMPARISON: 06/12/2019 CLINICAL INDICATION: Female, 54 years old with history of R05.3 CHRONIC COUGH, , TECHNIQUE: Frontal and lateral views FINDINGS: Heart upper limits of normal in size. Increased interstitial density. Possible focal medial left supr ahilar opacity versus superimposition relating to prominent rib end. Otherwise, no definite consolida tion or pleural effusion. IMPRESSION: Unable to exclude focal patchy opacity medial left upper lobe. Consider follow-up to assess for clear ance and correlate for any potential symptoms of pneumonia. CT can be considered if symptoms persist. [facility], Workstation: [id number], 01/08/2025 9:41 PM
== END | disposition home or self-care (01) ==
LOC: RADXRMAIN 15:17
DX: R05.3 Chronic cough (principal)
CPT/HCPCS: 71046

== ENCOUNTER → 2025-02-27 | Outpatient (CLI) | payer BC ==
[2025-02-27 06:57] LABS: African American GFR (CKD) 78 (>60 ml/min/1.73 sqM); Blood Urea Nitrogen 13 mg/dL (7-17); Non-African American GFR(CKD) 67 (>60 ml/min/1.73 sqM)
--- NOTE | 2025-02-27 13:55 | CT ---
EXAMINATION TYPE: CT chest w con DATE OF EXAM: 02/27/2025 7:14 AM COMPARISON: 03/02/2016 CLINICAL INDICATION: Female, 54 years old with history of R06.02 SOB, SOB TECHNIQUE: Axial images were obtained at 5 mm thick sections. Reconstructed images are reviewed on [employer] computer in the coronal plane. Contrast used:100 ml mL of Isovue 300 with IV Contrast, (none if empty) Oral contrast used: (none if empty) CT DLP: 618 mGycm, Automated exposure control for dose reduction was used. FINDINGS: Portion of the thyroid visualized is normal. No suspicious lung nodules or focal infiltrates are present. No enlarged mediastinal or hilar adenopathy is evident. The ascending aorta diameter at the level o f the main pulmonary artery is 3.5 cm. The main pulmonary artery diameter at the bifurcation is 3.0 cm. No significant coronary artery calcifications. Limited CT sections are obtained through the upper abdomen. There is a small hiatal hernia present. G astric sleeve appears to be present. IMPRESSION: 1. No acute pulmonary process. [facility], , 02/27/2025 1:53 PM
== END | disposition home or self-care (01) ==
LOC: RADCTMAIN 06:00
PROVIDERS: ATTEND Family Medicine
DX: R06.02 Shortness of breath (principal)
CPT/HCPCS: 82565; 84520; 71260; 36415; Q9967

== ENCOUNTER → 2025-04-03 | Outpatient (CLI) | payer BC | LOC: CPPFTMAIN 16:33 | PROVIDERS: ATTEND Family Medicine | DX: R05.9 Cough, unspecified (principal); Z88.5 Allergy status to narcotic agent; Z88.8 Allergy status to other drugs, medicaments and biological substances; Z88.6 Allergy status to analgesic agent; Z91.048 Other nonmedicinal substance allergy status | CPT/HCPCS: 94060; 94726; 94729 ==